=== PATIENT | male | born 1950 | race Caucasian/White ===

== ENCOUNTER 2020-08-02 18:03 | Inpatient (IN) | payer MEDICARE, BC ==
[2020-08-02] MEDS ORDERED: Lactated Ringers 1,000 ML IV ONE (18:37)
[2020-08-02] MEDS ORDERED: Metoclopramide 10 MG/2 ML SDV IVPUSH ONE (18:37)
--- NOTE | 2020-08-02 18:44 | EDM.PDOC ---
<Jon Calle Romana - Last Filed: 08/02/20 22:25> ED HPI GENERAL MEDICAL PROBLEM - General Chief Complaint: Diabetic Complaint Stated Complaint: BLOOD SUGAR +500,FLUCTUATING BP Time Seen by Provider: 08/02/20 18:37 - Related Data Allergies Allergy/AdvReac Type Severity Reaction Status Date / Time No Known Allergies Allergy Verified 08/03/20 00:00 Home Meds: Home Meds atorvaSTATin [Lipitor] 80 mg PO DAILY 04/08/14 [History] Glimepiride 2 mg PO DAILY 08/02/20 [History] Insulin Detemir [Levemir] 22 unit SUBCUT DAILY 08/02/20 [History] Latanoprost 1 drop EYEBOTH DAILY 08/02/20 [History] Levothyroxine [Synthroid] 100 mcg PO ACBREAKFAST 08/02/20 [History] Losartan [Cozaar] 50 mg PO DAILY 08/02/20 [History] Sildenafil [Revatio] 20 mg PO TID PRN 08/02/20 [History] metFORMIN [Glucophage] 850 mg PO DAILY 08/02/20 [History] #1 Interpretation EKG Date: 08/02/20 Time: 19:33 Rhythm: Other (Sinus tachycardia) Rate (Beats/Min): 106 [place]: Normal P-Wave: Present QRS: Normal ST-T: Normal QT: Prolonged (QTc 556 ms) Comparison: No Change (05/13/2014) Course - Re-Assessments/Exams Free Text/Narrative Re-Assessment/Exam: 08/02/20 19:[address] De Los Santos. Portable chest radiograph reviewed. The cardiac silhouette is within normal li mits. No pulmonary vascular congestion. No pleural effusions seen on this AP view. No focal infiltrate, although there is increased haziness to the right two thirds of the lung, most likely due to scarring and possible some atelectasis.. No pneumothorax. A left-sided Port-A-Cath is noted. The right shoulder is not visualized; the left shoulder appears to have degenerative joint disease. Formal read per the Radiologist pending. 08/02/20 20:05 The patient's first liter of IV fluid has finished infusing. I have ordered a second liter of IV fluid to be bolused. 08/02/20 20:17 The patient's CBC is remarkable for slight anemia with an H/H of 13.4/34.7, with the remainder of his CBC being unremarkable. His CMP is remarkable for hyponatremia of 126, which corrects to 132. His bicarbonate is significantly depressed at 12.0, with an anion gap elevated at 13.5. His BUN/Cr are elevated at 42/1.9, with hyperglycemia of 586, and the remainder of his CMP being unremarkable. His magnesium level is slightly depressed at 1.6. His phosphorus level is elevated at 5.2. His uric acid level is within normal limits at 5.8. His lactic acid level is elevated at 2.6. His serum ketones are significantly elevated at 7.05. His lipase level is within normal limits at 88. His TSH is elevated at 6.227. His pro-BNP is modestly elevated at 998. His coags are within normal limits. His CRP is mildly elevated at 1.4. His ABG represents a primary high anion gap metabolic acidosis with secondary respiratory alkalosis and metabolic alkalosis. His swab for the SARS-CoV-2 virus has returned negative. The patient's serum osmolality, ESR, and urinalysis are still pending. Reviewing prior labs, I see that the patient's BUN/Cr were 19/1.4 on 04/10/2014, although his Cr was within normal limits at 1.1 on 06/03/2014. The above confirms that the patient is in DKA. He will need to be admitted to the hospital. I have ordered a repeat lactic acid to be drawn at 00:30. 08/02/20 21:46 The patient's serum osmole has returned elevated at 314. His ESR is elevated at 27. He has not yet provided a urine sample. Case discussed with Dr. Herrera at 21:42. He accepted the patient for admission to the ICU. 08/02/20 21:53 The above plan was discussed with the patient and his family. He is agreeable. 08/02/20 22:04 The patient's blood glucose was 586 at 19:00, down to 499 at 20:45, indicating a drop of 87 over 1 hour 45 minutes = 58 mg/dl/hr = a little over half the rate of decline that we want. I have asked Anastasia MOSS to increase the insulin drip from 4 units/hr to 7 units/hr. Departure - Departure Time of Disposition: 21:46 Disposition: Admitted As Inpatient 66 Condition: Fair Clinical Impression: Hyperglycemia due to type 2 diabetes mellitus, Diabetic ketoacidosis, QT prolongation, Lactic acidosis, Renal insufficiency, Elevated TSH - Discharge Information <David De Los Santos - Last Filed: 08/05/20 13:06> ED HPI GENERAL MEDICAL PROBLEM - General Source of Information: Reports: Patient, Family (spouse) History Limitations: Reports: No Limitations - History of Present Illness INITIAL COMMENTS - FREE TEXT/NARRATIVE: 70-year-old male presents to the ED with a blood sugar reportedly greater than 500. Patient has been a diabetic for about 35 years he believes since 1984. He is on a combination of oral meds for diabetes as well as insulin. 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 He has had a combination of radiation and chemotherapy and the lung lesions have apparently cleared. A new lesion has shown up in his liver about the size of his thumbnail within the last 3 months. Patient had a PET scan within the last week which did not show any lesions in the lungs but did show the lesion in the liver. Patient is still receiving immunotherapy intravenously every 2 weeks through his Port-A-Cath left upper anterior chest by his oncologist. He just had it on Tuesday this last week July 29 for this lesion and it will be watched closely by his oncologist whom is Dr. Sandoval and Dr. Rodriguez in [place]. Patient has only had a boost to drink today. He did not check his blood sugars yesterday. He is extremely thirsty with polyuria and polydipsia. He is lightheaded and dizzy. Blood pressure was quite low this morning as well. It is currently 98/72 which is abnormally low for him as well. Denies cough or sputum production. No diarrhea. Had a small bilious emesis x1 this morning without blood. Patient has lost 21 pounds of weight since June of last year. Patient did take a slightly increased dose of Levemir insulin today increase it from 22 units to 25 units this morning. Onset: Gradual Onset Date: 08/01/20 Duration: Hour(s):, Constant, Getting Worse Location: Reports: Abdomen (Diffuse ache in the epigastrium. Epigastric abdominal discomfort.), Generalized (Neurolysed weakness with nausea. Mild lightheaded and dizzy.) Quality: Reports: Ache Severity: Moderate Improves with: Reports: None Worsens with: Reports: None Context: Denies: Activity, Exercise, Lifting, Sick Contact, Trauma Associated Symptoms: Reports: Cough, Loss of Appetite, Malaise (Normal cough with no sputum production), Nausea/Vomiting, Weakness. Denies: Confusion, Chest Pain, cough w sputum, Diaphoresis, Fever/Chills, Headaches, Rash, Seizure (Nausea throughout most of the day. Small emesis of bilious material once early this morning.), Shortness of Breath, Syncope Treatments PILLOW CLEANER: Reports: Other (see below) (Paralyzed.) Epigastric Pain Score (Numeric/FACES): 7 Past Medical History Respiratory History: Reports: Other (See Below) Other Respiratory History: lung ca in the right lung. He cannot member of his upper or lower. He was treated with radiation and chemotherapy. He had multiple lymphadenopathy in the right perihilar area as well which apparently has resolved on most recent PET scan. Unfortunately a new lesion was discovered in his liver within the last 4 months and it is being kept an eye on. He is still on immunotherapy. PET scan was done within the last 10 days. Endocrine/Metabolic History: Reports: Diabetes, Type II (Diagnosed with diabetes in about 1984. He has been taking oral medications initially and has been on insulin for greater than 25 years.) Oncologic (Cancer) History: Reports: Lung - Past Surgical History Respiratory Surgical History: Reports: Lung Biopsies, Other (See Below) (He asked anoscopy with biopsies.) GI Surgical History: Reports: Appendectomy, Cholecystectomy Social & Family History - Tobacco Use Tobacco Use Status *Q: Never Tobacco User - Recreational Drug Use Recreational Drug Use: No - Living Situation & Occupation Living situation: Reports: Occupation: Retired ED ROS GENERAL - Review of Systems Review Of Systems: See Below Constitutional: Reports: Malaise, Weakness, Fatigue, Decreased Appetite (A 1 pound weight loss over the last year.), Weight Loss. Denies: Fever, Chills HEENT: Reports: Glasses Respiratory: Reports: Cough, Other (Of lung cancer diagnosed 3 years ago involving right lung and right paramediastinal lymphadenopathy.). Denies: Shortness of Breath, Wheezing, Pleuritic Chest Pain, Sputum, Hemoptysis (Occasional nonproductive cough) Cardiovascular: Reports: Blood Pressure Problem, Lightheadedness. Denies: Chest Pain, Claudication (Usually has an elevated blood pressure. Running low today.), Dyspnea on Exertion, Edema, Orthopnea, Palpitations Endocrine: Reports: Fatigue GI/Abdominal: Reports: Abdominal Pain (Gastric abdominal discomfort with no radiation of the pain), Decreased Appetite, Nausea, Vomiting. Denies: Constipation, Diarrhea, Difficulty Swallowing, Distension, Flatus, Hematemesis, Hematochezia, Melena, Mucous in Stool, Stool Incontinence, Other (Small bilious emesis earlier this morning.) : Reports: Frequency, Urgency. Denies: Dysuria Musculoskeletal: Reports: Back Pain, Joint Pain (Knees and hips at times neck at times.) Skin: Reports: No Symptoms Neurological: Reports: Dizziness (Headed and dizzy), Weakness. Denies: Paresthesia ( particularly this morning.), Pre-Existing Deficit, Seizure, Syncope, Tingling, Tremors, Trouble Speaking, Difficulty Walking (Neurolysed weakness), Change in Speech Psychiatric: Reports: No Symptoms Hematologic/Lymphatic: Reports: No Symptoms Immunologic: Reports: No Symptoms ED EXAM GENERAL NO PERIP PULSE - Physical Exam Exam: See Below Exam Limited By: No Limitations General Appearance: Alert, WD/WN, Mild Distress, Other (Strong smell of ketones on his breath. Tongue is very dry and coated. Temperature is 36.4 degrees. Heart rate 118 and sinus on the monitor at the bedside. Respiratory it is 21 to 24/min with O2 sats 100%. BP 116/71 and after that it came down to 98/70. Subsequently has now come back up to 123/81.) Course - Vital Signs Last Recorded V/S: Last Vital Signs Temp 36.3 C 08/03/20 08:00 Pulse 80 08/03/20 08:00 Resp 16 08/03/20 08:00 BP 107/70 08/03/20 08:00 Pulse Ox 96 08/03/20 08:00 - Orders/Labs/Meds Labs: Laboratory Tests 08/02/20 08/02/20 08/02/20 Range/Units 03:04 18:55 19:00 WBC 8.00 (4.23-9.07) K/mm3 RBC 4.43 L (4.63-6.08) M/mm3 Hgb 13.4 L (13.7-17.5) gm/dl Hct 39.7 L (40.1-51.0) % MCV 89.6 D (79.0-92.2) fl MCH 30.2 (25.7-32.2) pg MCHC 33.8 (32.2-35.5) g/dl RDW Std Deviation 40.7 (35.1-43.9) fL Plt Count 230 (163-337) K/mm3 MPV 9.1 L (9.4-12.3) fl Neut % (Auto) 81.0 H (34.0-67.9) % Lymph % (Auto) 10.3 L (21.8-53.1) % [place] % (Auto) 8.3 (5.3-12.2) % Eos % (Auto) 0 L (0.8-7.0) Baso % (Auto) 0.1 (0.1-1.2) % Neut # (Auto) 6.49 H (1.78-5.38) K/mm3 Lymph # (Auto) 0.82 L (1.32-3.57) K/mm3 [place] # (Auto) 0.66 (0.30-0.82) K/mm3 Eos # (Auto) 0.00 L (0.04-0.54) K/mm3 Baso # (Auto) 0.01 (0.01-0.08) K/mm3 ESR (0-15) mm/hr PT (9.7-12.0) SECONDS INR APTT (21.7-31.4) SECONDS Puncture Site Lt radial ABG pH 7.27 L (7.35-7.45) ABG pCO2 22.7 L (35.0-45.0) mmHg ABG pO2 106.0 H (80.0-100.0) mmHg ABG HCO3 10.2 L (22.0-26.0) meq/L ABG O2 Saturation 97.3 H (96.0-97.0) % ABG Base Excess -15.0 L (-2-2.0) Codey Test Positive A-a Gradient 16 mmHg O2 Delivery Device Room air Oxygen Flow Rate 0.0 FiO2 21.00 (21.00-100.00) % Sodium (136-145) mEq/L Potassium (3.5-5.1) mEq/L Chloride (98-107) mEq/L Carbon Dioxide (21-32) mEq/L Anion Gap (5-15) BUN (7-18) mg/dL Creatinine (0.7-1.3) mg/dL Est Cr Clr Drug Dosing mL/min Estimated GFR (MDRD) (>60) mL/min BUN/Creatinine Ratio (14-18) Glucose (80-115) mg/dL Serum Osmolality (280-300) mosm/kg Lactic Acid (0.4-2.0) mmol/L Uric Acid (3.5-7.2) mg/dL Calcium (8.5-10.1) mg/dL Phosphorus (2.6-4.7) mg/dL Magnesium (1.8-2.4) mg/dl Total Bilirubin (0.2-1.0) mg/dL AST (15-37) U/L ALT (16-63) U/L Alkaline Phosphatase (46-116) U/L C-Reactive Protein (<1.0) mg/dL NT-Pro-B Natriuret Pep (0-125) pg/mL Total Protein (6.4-8.2) g/dl Albumin (3.4-5.0) g/dl Globulin gm/dL Albumin/Globulin Ratio (1-2) Lipase (73-393) U/L TSH 3rd Generation (0.358-3.74) uIU/mL Ketones (0.0-0.3) mM Influenza Type A RNA Negative (NEGATIVE) Influenza Type B RNA Negative (NEGATIVE) SARS-CoV-2 RNA (DUSTY) Negative (NEGATIVE) 08/02/20 08/02/20 08/02/20 Range/Units 19:00 19:00 19:00 WBC (4.23-9.07) K/mm3 RBC (4.63-6.08) M/mm3 Hgb (13.7-17.5) gm/dl Hct (40.1-51.0) % MCV (79.0-92.2) fl MCH (25.7-32.2) pg MCHC (32.2-35.5) g/dl RDW Std Deviation (35.1-43.9) fL Plt Count (163-337) K/mm3 MPV (9.4-12.3) fl Neut % (Auto) (34.0-67.9) % Lymph % (Auto) (21.8-53.1) % [place] % (Auto) (5.3-12.2) % Eos % (Auto) (0.8-7.0) Baso % (Auto) (0.1-1.2) % Neut # (Auto) (1.78-5.38) K/mm3 Lymph # (Auto) (1.32-3.57) K/mm3 [place] # (Auto) (0.30-0.82) K/mm3 Eos # (Auto) (0.04-0.54) K/mm3 Baso # (Auto) (0.01-0.08) K/mm3 ESR (0-15) mm/hr PT (9.7-12.0) SECONDS INR APTT (21.7-31.4) SECONDS Puncture Site ABG pH (7.35-7.45) ABG pCO2 (35.0-45.0) mmHg ABG pO2 (80.0-100.0) mmHg ABG HCO3 (22.0-26.0) meq/L ABG O2 Saturation (96.0-97.0) % ABG Base Excess (-2-2.0) Codey Test A-a Gradient mmHg O2 Delivery Device Oxygen Flow Rate FiO2 (21.00-100.00) % Sodium 126 L (136-145) mEq/L Potassium 4.5 (3.5-5.1) mEq/L Chloride 87 L (98-107) mEq/L Carbon Dioxide 12 L D (21-32) mEq/L Anion Gap 31.5 H (5-15) BUN 42 H (7-18) mg/dL Creatinine 1.9 H (0.7-1.3) mg/dL Est Cr Clr Drug Dosing 39.71 mL/min Estimated GFR (MDRD) 35 (>60) mL/min BUN/Creatinine Ratio 22.1 H (14-18) Glucose 586 H (80-115) mg/dL Serum Osmolality 314 H (280-300) mosm/kg Lactic Acid 2.6 H* (0.4-2.0) mmol/L Uric Acid 5.8 (3.5-7.2) mg/dL Calcium 9.3 (8.5-10.1) mg/dL Phosphorus 5.2 H (2.6-4.7) mg/dL Magnesium 1.6 L (1.8-2.4) mg/dl Total Bilirubin 0.6 (0.2-1.0) mg/dL AST 26 (15-37) U/L ALT 44 (16-63) U/L Alkaline Phosphatase 100 (46-116) U/L C-Reactive Protein 1.4 H* (<1.0) mg/dL NT-Pro-B Natriuret Pep (0-125) pg/mL Total Protein 6.9 (6.4-8.2) g/dl Albumin 3.3 L (3.4-5.0) g/dl Globulin 3.6 gm/dL Albumin/Globulin Ratio 0.9 L (1-2) Lipase 88 (73-393) U/L TSH 3rd Generation (0.358-3.74) uIU/mL Ketones 7.05 (0.0-0.3) mM Influenza Type A RNA (NEGATIVE) Influenza Type B RNA (NEGATIVE) SARS-CoV-2 RNA (DUSTY) (NEGATIVE) 08/02/20 08/02/20 08/02/20 Range/Units 19:00 19:00 19:00 WBC (4.23-9.07) K/mm3 RBC (4.63-6.08) M/mm3 Hgb (13.7-17.5) gm/dl Hct (40.1-51.0) % MCV (79.0-92.2) fl MCH (25.7-32.2) pg MCHC (32.2-35.5) g/dl RDW Std Deviation (35.1-43.9) fL Plt Count (163-337) K/mm3 MPV (9.4-12.3) fl Neut % (Auto) (34.0-67.9) % Lymph % (Auto) (21.8-53.1) % [place] % (Auto) (5.3-12.2) % Eos % (Auto) (0.8-7.0) Baso % (Auto) (0.1-1.2) % Neut # (Auto) (1.78-5.38) K/mm3 Lymph # (Auto) (1.32-3.57) K/mm3 [place] # (Auto) (0.30-0.82) K/mm3 Eos # (Auto) (0.04-0.54) K/mm3 Baso # (Auto) (0.01-0.08) K/mm3 ESR 27 H (0-15) mm/hr PT 10.5 (9.7-12.0) SECONDS INR 0.98 APTT 30.9 (21.7-31.4) SECONDS Puncture Site ABG pH (7.35-7.45) ABG pCO2 (35.0-45.0) mmHg ABG pO2 (80.0-100.0) mmHg ABG HCO3 (22.0-26.0) meq/L ABG O2 Saturation (96.0-97.0) % ABG Base Excess (-2-2.0) Codey Test A-a Gradient mmHg O2 Delivery Device Oxygen Flow Rate FiO2 (21.00-100.00) % Sodium (136-145) mEq/L Potassium (3.5-5.1) mEq/L Chloride (98-107) mEq/L Carbon Dioxide (21-32) mEq/L Anion Gap (5-15) BUN (7-18) mg/dL Creatinine (0.7-1.3) mg/dL Est Cr Clr Drug Dosing mL/min Estimated GFR (MDRD) (>60) mL/min BUN/Creatinine Ratio (14-18) Glucose (80-115) mg/dL Serum Osmolality (280-300) mosm/kg Lactic Acid (0.4-2.0) mmol/L Uric Acid (3.5-7.2) mg/dL Calcium (8.5-10.1) mg/dL Phosphorus (2.6-4.7) mg/dL Magnesium (1.8-2.4) mg/dl Total Bilirubin (0.2-1.0) mg/dL AST (15-37) U/L ALT (16-63) U/L Alkaline Phosphatase (46-116) U/L C-Reactive Protein (<1.0) mg/dL NT-Pro-B Natriuret Pep 998 H (0-125) pg/mL Total Protein (6.4-8.2) g/dl Albumin (3.4-5.0) g/dl Globulin gm/dL Albumin/Globulin Ratio (1-2) Lipase (73-393) U/L TSH 3rd Generation (0.358-3.74) uIU/mL Ketones (0.0-0.3) mM Influenza Type A RNA (NEGATIVE) Influenza Type B RNA (NEGATIVE) SARS-CoV-2 RNA (DUSTY) (NEGATIVE) 08/02/20 08/02/20 08/02/20 Range/Units 19:00 19:03 20:45 WBC (4.23-9.07) K/mm3 RBC (4.63-6.08) M/mm3 Hgb (13.7-17.5) gm/dl Hct (40.1-51.0) % MCV (79.0-92.2) fl MCH (25.7-32.2) pg MCHC (32.2-35.5) g/dl RDW Std Deviation (35.1-43.9) fL Plt Count (163-337) K/mm3 MPV (9.4-12.3) fl Neut % (Auto) (34.0-67.9) % Lymph % (Auto) (21.8-53.1) % [place] % (Auto) (5.3-12.2) % Eos % (Auto) (0.8-7.0) Baso % (Auto) (0.1-1.2) % Neut # (Auto) (1.78-5.38) K/mm3 Lymph # (Auto) (1.32-3.57) K/mm3 [place] # (Auto) (0.30-0.82) K/mm3 Eos # (Auto) (0.04-0.54) K/mm3 Baso # (Auto) (0.01-0.08) K/mm3 ESR (0-15) mm/hr PT (9.7-12.0) SECONDS INR APTT (21.7-31.4) SECONDS Puncture Site ABG pH (7.35-7.45) ABG pCO2 (35.0-45.0) mmHg ABG pO2 (80.0-100.0) mmHg ABG HCO3 (22.0-26.0) meq/L ABG O2 Saturation (96.0-97.0) % ABG Base Excess (-2-2.0) Codey Test A-a Gradient mmHg O2 Delivery Device Oxygen Flow Rate FiO2 (21.00-100.00) % Sodium (136-145) mEq/L Potassium (3.5-5.1) mEq/L Chloride (98-107) mEq/L Carbon Dioxide (21-32) mEq/L Anion Gap (5-15) BUN (7-18) mg/dL Creatinine (0.7-1.3) mg/dL Est Cr Clr Drug Dosing mL/min Estimated GFR (MDRD) (>60) mL/min BUN/Creatinine Ratio (14-18) Glucose 499 H (80-115) mg/dL Serum Osmolality (280-300) mosm/kg Lactic Acid (0.4-2.0) mmol/L Uric Acid (3.5-7.2) mg/dL Calcium (8.5-10.1) mg/dL Phosphorus (2.6-4.7) mg/dL Magnesium (1.8-2.4) mg/dl Total Bilirubin (0.2-1.0) mg/dL AST (15-37) U/L ALT (16-63) U/L Alkaline Phosphatase (46-116) U/L C-Reactive Protein (<1.0) mg/dL NT-Pro-B Natriuret Pep (0-125) pg/mL Total Protein (6.4-8.2) g/dl Albumin (3.4-5.0) g/dl Globulin gm/dL Albumin/Globulin Ratio (1-2) Lipase (73-393) U/L TSH 3rd Generation 6.227 H (0.358-3.74) uIU/mL Ketones (0.0-0.3) mM Influenza Type A RNA (NEGATIVE) Influenza Type B RNA (NEGATIVE) SARS-CoV-2 RNA (DUSTY) Negative (NEGATIVE) Meds: Medications Discontinued Medications Generic Name Dose Route Start Last Admin Trade Name Freq PRN Reason Stop Dose Admin Acetaminophen 650 mg 08/02/20 21:44 Tylenol PO Q4H PRN Pain (Mild 1-3)/fever Hydrocodone Bitart/Acetaminophen 1 tab 08/02/20 21:44 [place] 325-5 Mg PO Q4H PRN Pain (moderate 4-6) Albuterol/Ipratropium 3 ml 08/02/20 21:44 Duoneb 3.0-0.5 Mg/3 Ml NEB Q4H PRN Shortness Of Breath/wheezing Heparin Sodium (Porcine) 500 units 08/03/20 11:30 08/03/20 11:24 Heparin Lock Flush 100 Units/Ml FLUSH 08/03/20 11:31 500 units ONETIME ONE Administration Lactated Ringer's 1,000 mls @ 999 mls/hr 08/02/20 18:37 08/02/20 19:01 Ringers, Lactated IV 08/02/20 19:37 999 mls/hr .BOLUS ONE Administration Insulin Human Regular 100 unit 100 mls @ 4 mls/hr 08/02/20 19:15 08/02/20 22:07 / Sodium Chloride IV 6 unit/hr TITRATE REGINALD 6 mls/hr Infusion 4 UNIT/HR Sodium Chloride 1,000 mls @ 999 mls/hr 08/02/20 20:05 08/02/20 20:10 Normal Saline IV 08/02/20 21:05 999 mls/hr ONETIME ONE Administration Promethazine HCl 12.5 mg/ 50.5 mls @ 100 mls/hr 08/02/20 21:44 Sodium Chloride IV Q6H PRN Nausea/Vomiting Magnesium Sulfate 4 gm/ Premix 50 mls @ 12.5 mls/hr 08/02/20 21:52 08/02/20 22:41 IV 08/03/20 01:51 12.5 mls/hr ONETIME ONE Administration Sodium Chloride 1,000 mls @ 125 mls/hr 08/02/20 22:00 08/02/20 22:43 Normal Saline IV 08/03/20 05:59 125 mls/hr ASDIRECTED REGINALD Administration Insulin Human Regular 100 unit 100 mls @ 4 mls/hr 08/02/20 23:24 08/03/20 06:35 / Sodium Chloride IV 4 unit/hr TITRATE REGINALD 4 mls/hr Titration Protocol 4 UNIT/HR Potassium Chloride 10 meq/ 100 mls @ 100 mls/hr 08/03/20 03:45 08/03/20 03:45 Premix IV 08/03/20 04:44 100 mls/hr ASDIRECTED ONE Administration Dextrose/Sodium Chloride 1,000 mls @ 150 mls/hr 08/03/20 04:00 08/03/20 04:13 Dextrose 5%-Normal Saline IV 150 mls/hr ASDIRECTED REGINALD Administration Potassium Chloride 10 meq/ 100 mls @ 100 mls/hr 08/03/20 10:00 08/03/20 11:00 Premix IV 08/03/20 12:59 Not Given Q1H REGINALD Insulin Glargine 25 unit 08/03/20 00:58 08/03/20 01:07 Lantus SUBCUT 08/03/20 00:59 25 unit DAILY STA Administration Insulin Glargine 22 unit 08/03/20 09:15 08/03/20 09:23 Lantus SUBCUT 22 units DAILY REGINALD Administration Latanoprost 0 ml 08/03/20 09:00 08/03/20 09:26 Xalatan 0.005% Ophth Soln EYEBOTH 1 drop DAILY REGINALD Administration Metoclopramide HCl 7.5 mg 08/02/20 18:37 08/02/20 19:00 Reglan IVPUSH 08/02/20 18:38 7.5 mg ONETIME ONE Administration Ondansetron HCl 4 mg 08/02/20 21:44 Zofran IV Q6H PRN Nausea/Vomiting Polyethylene Glycol 17 gm 08/02/20 21:44 Miralax PO DAILY PRN Constipation Rosuvastatin Calcium 20 mg 08/03/20 21:00 Crestor PO DAILY@2100 REGINALD Senna/Docusate Sodium 1 tab 08/02/20 21:44 Senna Plus PO BID PRN Constipation Sodium Phosphate 250 mg 08/03/20 10:00 08/03/20 10:00 Neutra-Phos PO 08/03/20 10:01 250 mg ONETIME ONE Administration Zolpidem Tartrate 5 mg 08/02/20 21:44 08/02/20 22:50 Ambien PO 5 mg BEDTIME PRN Administration Sleep - Radiology Interpretation Free Text/Narrative:: 70-year-old male presents to the ED due to an elevated blood sugar of greater than 500 associated with generalized weakness epigastric abdominal pain and loss of appetite. Patient is a known diabetic type II since 1984. He was initially treated with oral medications and then changed to insulin in about 1995 or . Patient was diagnosed with right-sided lung cancer about 3 years ago and has undergone radiation and chemotherapy. He had significant lymphadenopathy in the right perihilar area which apparently has diminished or pretty well absent on recent PET scan. Unfortunately a lesion has been discovered in the right lobe of his liver about the size of his thumbnail for which she is continuing immunotherapy for. Patient did take a slightly increased dose of Levemir insulin this morning from 22 to 25 units subcu. He did not check his blood sugars yesterday and therefore is not exactly sure how long his blood sugars have gone out of control. He denies any fever or chills and he has no outward signs of any obvious infection. Patient has strong smell of ketones on his breath. He admits to severe polyuria and polydipsia. Plan IV Ringer's lactate open. Will await his bedside blood sugar before starting an insulin drip. Labs have been ordered including ABGs and a chest x-ray. - Re-Assessments/Exams Free Text/Narrative Re-Assessment/Exam: 08/02/20 19:07 care will be transferred to Dr. Calle and is it is change of shift. The patient is likely going to require admission to hospital likely the ICU due to diabetic ketoacidosis. His investigations have just begun. Blood sugar in the department is greater than 400. His reports that blood sugar was 533 at home before they came up to [place]. I will therefore start him on a regular insulin infusion at 4 units an hour. ABGs reveal a pH of 7.27. PCO2 is 22.7 PO2 is 106.0. O2 sats 97.3% on room air. Sepsis Event Note (ED) - Evaluation Sepsis Screening Result: Possible Sepsis Risk
[2020-08-02] MEDS ORDERED: Sodium Chloride 0.9% 1,000 ML IV ONE (20:05)
[2020-08-02] MEDS ORDERED: Albuterol/Ipratropium 3.0-0.5 MG/3 ML Neb Soln NEB PRN (21:44)
[2020-08-02] MEDS ORDERED: Polyethylene Glycol 3350 Powder 17 GM Packet PO PRN (21:44)
[2020-08-02] MEDS ORDERED: Acetaminophen 325 MG Tab PO PRN (21:44)
[2020-08-02] MEDS ORDERED: Zolpidem 5 MG Tab PO PRN (21:44)
[2020-08-02] MEDS ORDERED: Promethazine 12.5 MG in Sodium Chloride 0.9% 50 ML IV PRN (21:44)
[2020-08-02] MEDS ORDERED: Ondansetron 4 MG/2 ML SDV IV PRN (21:44)
[2020-08-02] MEDS ORDERED: Acetaminophen/HYDROcodone 325-5 MG Tab PO PRN (21:44)
--- NOTE | 2020-08-02 21:44 | PCM.HP.2 ---
H&P History of Present Illness - General Date of Service: 08/02/20 Admit Problem/Dx: DKA Source of Information: Patient, Family, Old Records, Provider, RN Notes Reviewed History Limitations: Reports: No Limitations - History of Present Illness Initial Comments - Free Text/Narative: This is a 70 yo elderly white female with past medical hx/o HTN, HLD, DM2, ED, Hypothyroidism, and Lung Cancer S/p Chemo-radiation therapy who presented to ED with complaints of generalized weakness associated abdominal pain, nausea, vomiting as well as polyuria/polydipsia and was diagnosed with DKA. His initial blood level upon arrival in ED was > 500. He denies recent URI and/or signs or systemic infection. No report of dysuria or hematuria. He has had chemo-radiation treatment for his lung cancer. He states that he went up a bit on his Levemir to 25 units form 22. He does not know how long his sugar has been elevated as he did not check it yesterday. His initial work up shows a CBC remarkable for Hgb of 13.4, Hct of 39.7, and Neutrophils of 81%. His ESR is elevated at 27. His coagulation studies are wnl. His chemistry is significant for Na of 126, Cl of 87, Co2 of 12, AG of 31.5, BUN of 42, Cr of 1.9, BS of 586, Serum Osm of 314, LA of 2.6, Phos of 5.2, Mg of 1.6, CRP of 1.4, ProBNP of 998, and Albumin of 3.3. His serum ketones level is 7.05. His Covid-19 test is negative and his UA is negative for UTI. His chest x- ray shows no acute abnormal findings. Patient received initial treatment in ED before coming in to the unit for further management of DKA. Epigastric Pain Score (Numeric/FACES): 7 - Related Data Allergies/Adverse Reactions: Allergies Allergy/AdvReac Type Severity Reaction Status Date / Time No Known Allergies Allergy Verified 08/03/20 00:00 Home Medications: Home Meds atorvaSTATin [Lipitor] 80 mg PO DAILY 04/08/14 [History] Glimepiride 2 mg PO DAILY 08/02/20 [History] Insulin Detemir [Levemir] 22 unit SUBCUT DAILY 08/02/20 [History] Latanoprost 1 drop EYEBOTH DAILY 08/02/20 [History] Levothyroxine [Synthroid] 100 mcg PO ACBREAKFAST 08/02/20 [History] Losartan [Cozaar] 50 mg PO DAILY 08/02/20 [History] Sildenafil [Revatio] 20 mg PO TID PRN 08/02/20 [History] metFORMIN [Glucophage] 850 mg PO DAILY 08/02/20 [History] Past Medical History Respiratory History: Reports: Other (See Below) Other Respiratory History: lung ca in the right lung. He cannot member of his upper or lower. He was treated with radiation and chemotherapy. He had multiple lymphadenopathy in the right perihilar area as well which apparently has resolved on most recent PET scan. Unfortunately a new lesion was discovered in his liver within the last 4 months and it is being kept an eye on. He is still on immunotherapy. PET scan was done within the last 10 days. Endocrine/Metabolic History: Reports: Diabetes, Type II (Diagnosed with diabetes in about 1984. He has been taking oral medications initially and has been on insulin for greater than 25 years.) Oncologic (Cancer) History: Reports: Lung - Past Surgical History Respiratory Surgical History: Reports: Lung Biopsies, Other (See Below) (He asked anoscopy with biopsies.) GI Surgical History: Reports: Appendectomy, Cholecystectomy Social & Family History - Tobacco Use Tobacco Use Status *Q: Never Tobacco User - Recreational Drug Use Recreational Drug Use: No - Living Situation & Occupation Living situation: Reports: Occupation: Retired H&P Review of Systems - Review of Systems: Review Of Systems: See Below General: Reports: Weakness, Fatigue. Denies: Fever, Chills HEENT: Denies: Contact Lenses Pulmonary: Denies: Shortness of Breath, Cough Cardiovascular: Reports: Lightheadedness. Denies: Chest Pain, Syncope Gastrointestinal: Reports: Abdominal Pain, Nausea, Vomiting Genitourinary: Reports: Frequency, Other (polyuria) Musculoskeletal: Denies: Joint Pain Skin: Denies: Bruising, Pruritis, Rash Psychiatric: Denies: Depression, Anxiety Neurological: Reports: Dizziness, Weakness. Denies: Difficulty Walking, Gait Disturbance Hematologic/Lymphatic: Reports: No Symptoms Immunologic: Reports: No Symptoms Exam - Exam Exam: See Below - Vital Signs Vital Signs: Last Vital Signs Temp 36.4 C 08/02/20 18:23 Pulse 118 H 08/02/20 18:23 Resp 21 H 08/02/20 18:23 BP 116/71 08/02/20 18:23 Pulse Ox 100 08/02/20 18:23 Weight: 86.183 kg - Exam General: Alert, Oriented, Cooperative HEENT: Conjunctiva Clear, EACs Clear, EOMI, Hearing Intact, Mucosa Moist & [place], Nares Patent, Normal Nasal Septum, Posterior Pharynx Clear, Pupils Equal, Pupils Reactive, TMs Clear Neck: Supple, Trachea Midline, Carotid Bruit Lungs: Clear to Auscultation, Other (port-a-cath on left anterior thorax) Cardiovascular: Regular Rate, Regular Rhythm GI/Abdominal Exam: Normal Bowel Sounds, Soft, Non-Tender, No Organomegaly, No Distention, No Abnormal Bruit, No Mass (Male) Exam: Deferred Rectal (Males) Exam: Deferred Back Exam: Normal Inspection, Decreased Range of Motion Extremities: Normal Inspection, Normal Range of Motion, Non-Tender, No Pedal Edema, Normal Capillary Refill Peripheral Pulses: 2+: Dorsalis Pedis (L), Dorsalis Pedis (R) Skin: Warm, Dry, Intact Neuro Extensive - Mental Status: Oriented x3, Normal Cognition, Memory Intact Neuro Extensive - Motor, Sensory, Reflexes: CN II-XII Intact, Normal Gait Psychiatric: Alert, Normal Affect, Normal Mood - Patient Data Lab Results Last 24 hrs: Laboratory Results - last 24 hr 08/02/20 08/02/20 08/02/20 Range/Units 18:55 19:00 19:00 WBC 8.00 (4.23-9.07) K/mm3 RBC 4.43 L (4.63-6.08) M/mm3 Hgb 13.4 L (13.7-17.5) gm/dl Hct 39.7 L (40.1-51.0) % MCV 89.6 D (79.0-92.2) fl MCH 30.2 (25.7-32.2) pg MCHC 33.8 (32.2-35.5) g/dl RDW Std Deviation 40.7 (35.1-43.9) fL Plt Count 230 (163-337) K/mm3 MPV 9.1 L (9.4-12.3) fl Neut % (Auto) 81.0 H (34.0-67.9) % Lymph % (Auto) 10.3 L (21.8-53.1) % [place] % (Auto) 8.3 (5.3-12.2) % Eos % (Auto) 0 L (0.8-7.0) Baso % (Auto) 0.1 (0.1-1.2) % Neut # (Auto) 6.49 H (1.78-5.38) K/mm3 Lymph # (Auto) 0.82 L (1.32-3.57) K/mm3 [place] # (Auto) 0.66 (0.30-0.82) K/mm3 Eos # (Auto) 0.00 L (0.04-0.54) K/mm3 Baso # (Auto) 0.01 (0.01-0.08) K/mm3 ESR (0-15) mm/hr PT (9.7-12.0) SECONDS INR APTT (21.7-31.4) SECONDS Puncture Site Lt radial ABG pH 7.27 L (7.35-7.45) ABG pCO2 22.7 L (35.0-45.0) mmHg ABG pO2 106.0 H (80.0-100.0) mmHg ABG HCO3 10.2 L (22.0-26.0) meq/L ABG O2 Saturation 97.3 H (96.0-97.0) % ABG Base Excess -15.0 L (-2-2.0) Codey Test Positive A-a Gradient 16 mmHg O2 Delivery Device Room air Oxygen Flow Rate 0.0 FiO2 21.00 (21.00-100.00) % Sodium 126 L (136-145) mEq/L Potassium 4.5 (3.5-5.1) mEq/L Chloride 87 L (98-107) mEq/L Carbon Dioxide 12 L D (21-32) mEq/L Anion Gap 31.5 H (5-15) BUN 42 H (7-18) mg/dL Creatinine 1.9 H (0.7-1.3) mg/dL Est Cr Clr Drug Dosing 39.71 mL/min Estimated GFR (MDRD) 35 (>60) mL/min BUN/Creatinine Ratio 22.1 H (14-18) Glucose 586 H (80-115) mg/dL Serum Osmolality 314 H (280-300) mosm/kg Lactic Acid (0.4-2.0) mmol/L Uric Acid 5.8 (3.5-7.2) mg/dL Calcium 9.3 (8.5-10.1) mg/dL Phosphorus 5.2 H (2.6-4.7) mg/dL Magnesium 1.6 L (1.8-2.4) mg/dl Total Bilirubin 0.6 (0.2-1.0) mg/dL AST 26 (15-37) U/L ALT 44 (16-63) U/L Alkaline Phosphatase 100 (46-116) U/L C-Reactive Protein 1.4 H* (<1.0) mg/dL NT-Pro-B Natriuret Pep (0-125) pg/mL Total Protein 6.9 (6.4-8.2) g/dl Albumin 3.3 L (3.4-5.0) g/dl Globulin 3.6 gm/dL Albumin/Globulin Ratio 0.9 L (1-2) Lipase 88 (73-393) U/L TSH 3rd Generation (0.358-3.74) uIU/mL Ketones (0.0-0.3) mM SARS-CoV-2 RNA (DUSTY) (NEGATIVE) 08/02/20 08/02/20 08/02/20 Range/Units 19:00 19:00 19:00 WBC (4.23-9.07) K/mm3 RBC (4.63-6.08) M/mm3 Hgb (13.7-17.5) gm/dl Hct (40.1-51.0) % MCV (79.0-92.2) fl MCH (25.7-32.2) pg MCHC (32.2-35.5) g/dl RDW Std Deviation (35.1-43.9) fL Plt Count (163-337) K/mm3 MPV (9.4-12.3) fl Neut % (Auto) (34.0-67.9) % Lymph % (Auto) (21.8-53.1) % [place] % (Auto) (5.3-12.2) % Eos % (Auto) (0.8-7.0) Baso % (Auto) (0.1-1.2) % Neut # (Auto) (1.78-5.38) K/mm3 Lymph # (Auto) (1.32-3.57) K/mm3 [place] # (Auto) (0.30-0.82) K/mm3 Eos # (Auto) (0.04-0.54) K/mm3 Baso # (Auto) (0.01-0.08) K/mm3 ESR (0-15) mm/hr PT 10.5 (9.7-12.0) SECONDS INR 0.98 APTT 30.9 (21.7-31.4) SECONDS Puncture Site ABG pH (7.35-7.45) ABG pCO2 (35.0-45.0) mmHg ABG pO2 (80.0-100.0) mmHg ABG HCO3 (22.0-26.0) meq/L ABG O2 Saturation (96.0-97.0) % ABG Base Excess (-2-2.0) Codey Test A-a Gradient mmHg O2 Delivery Device Oxygen Flow Rate FiO2 (21.00-100.00) % Sodium (136-145) mEq/L Potassium (3.5-5.1) mEq/L Chloride (98-107) mEq/L Carbon Dioxide (21-32) mEq/L Anion Gap (5-15) BUN (7-18) mg/dL Creatinine (0.7-1.3) mg/dL Est Cr Clr Drug Dosing mL/min Estimated GFR (MDRD) (>60) mL/min BUN/Creatinine Ratio (14-18) Glucose (80-115) mg/dL Serum Osmolality (280-300) mosm/kg Lactic Acid 2.6 H* (0.4-2.0) mmol/L Uric Acid (3.5-7.2) mg/dL Calcium (8.5-10.1) mg/dL Phosphorus (2.6-4.7) mg/dL Magnesium (1.8-2.4) mg/dl Total Bilirubin (0.2-1.0) mg/dL AST (15-37) U/L ALT (16-63) U/L Alkaline Phosphatase (46-116) U/L C-Reactive Protein (<1.0) mg/dL NT-Pro-B Natriuret Pep (0-125) pg/mL Total Protein (6.4-8.2) g/dl Albumin (3.4-5.0) g/dl Globulin gm/dL Albumin/Globulin Ratio (1-2) Lipase (73-393) U/L TSH 3rd Generation (0.358-3.74) uIU/mL Ketones 7.05 (0.0-0.3) mM SARS-CoV-2 RNA (DUSTY) (NEGATIVE) 08/02/20 08/02/20 08/02/20 Range/Units 19:00 19:00 19:00 WBC (4.23-9.07) K/mm3 RBC (4.63-6.08) M/mm3 Hgb (13.7-17.5) gm/dl Hct (40.1-51.0) % MCV (79.0-92.2) fl MCH (25.7-32.2) pg MCHC (32.2-35.5) g/dl RDW Std Deviation (35.1-43.9) fL Plt Count (163-337) K/mm3 MPV (9.4-12.3) fl Neut % (Auto) (34.0-67.9) % Lymph % (Auto) (21.8-53.1) % [place] % (Auto) (5.3-12.2) % Eos % (Auto) (0.8-7.0) Baso % (Auto) (0.1-1.2) % Neut # (Auto) (1.78-5.38) K/mm3 Lymph # (Auto) (1.32-3.57) K/mm3 [place] # (Auto) (0.30-0.82) K/mm3 Eos # (Auto) (0.04-0.54) K/mm3 Baso # (Auto) (0.01-0.08) K/mm3 ESR 27 H (0-15) mm/hr PT (9.7-12.0) SECONDS INR APTT (21.7-31.4) SECONDS Puncture Site ABG pH (7.35-7.45) ABG pCO2 (35.0-45.0) mmHg ABG pO2 (80.0-100.0) mmHg ABG HCO3 (22.0-26.0) meq/L ABG O2 Saturation (96.0-97.0) % ABG Base Excess (-2-2.0) Codey Test A-a Gradient mmHg O2 Delivery Device Oxygen Flow Rate FiO2 (21.00-100.00) % Sodium (136-145) mEq/L Potassium (3.5-5.1) mEq/L Chloride (98-107) mEq/L Carbon Dioxide (21-32) mEq/L Anion Gap (5-15) BUN (7-18) mg/dL Creatinine (0.7-1.3) mg/dL Est Cr Clr Drug Dosing mL/min Estimated GFR (MDRD) (>60) mL/min BUN/Creatinine Ratio (14-18) Glucose (80-115) mg/dL Serum Osmolality (280-300) mosm/kg Lactic Acid (0.4-2.0) mmol/L Uric Acid (3.5-7.2) mg/dL Calcium (8.5-10.1) mg/dL Phosphorus (2.6-4.7) mg/dL Magnesium (1.8-2.4) mg/dl Total Bilirubin (0.2-1.0) mg/dL AST (15-37) U/L ALT (16-63) U/L Alkaline Phosphatase (46-116) U/L C-Reactive Protein (<1.0) mg/dL NT-Pro-B Natriuret Pep 998 H (0-125) pg/mL Total Protein (6.4-8.2) g/dl Albumin (3.4-5.0) g/dl Globulin gm/dL Albumin/Globulin Ratio (1-2) Lipase (73-393) U/L TSH 3rd Generation 6.227 H (0.358-3.74) uIU/mL Ketones (0.0-0.3) mM SARS-CoV-2 RNA (DUSTY) (NEGATIVE) 08/02/20 08/02/20 Range/Units 19:03 20:45 WBC (4.23-9.07) K/mm3 RBC (4.63-6.08) M/mm3 Hgb (13.7-17.5) gm/dl Hct (40.1-51.0) % MCV (79.0-92.2) fl MCH (25.7-32.2) pg MCHC (32.2-35.5) g/dl RDW Std Deviation (35.1-43.9) fL Plt Count (163-337) K/mm3 MPV (9.4-12.3) fl Neut % (Auto) (34.0-67.9) % Lymph % (Auto) (21.8-53.1) % [place] % (Auto) (5.3-12.2) % Eos % (Auto) (0.8-7.0) Baso % (Auto) (0.1-1.2) % Neut # (Auto) (1.78-5.38) K/mm3 Lymph # (Auto) (1.32-3.57) K/mm3 [place] # (Auto) (0.30-0.82) K/mm3 Eos # (Auto) (0.04-0.54) K/mm3 Baso # (Auto) (0.01-0.08) K/mm3 ESR (0-15) mm/hr PT (9.7-12.0) SECONDS INR APTT (21.7-31.4) SECONDS Puncture Site ABG pH (7.35-7.45) ABG pCO2 (35.0-45.0) mmHg ABG pO2 (80.0-100.0) mmHg ABG HCO3 (22.0-26.0) meq/L ABG O2 Saturation (96.0-97.0) % ABG Base Excess (-2-2.0) Codey Test A-a Gradient mmHg O2 Delivery Device Oxygen Flow Rate FiO2 (21.00-100.00) % Sodium (136-145) mEq/L Potassium (3.5-5.1) mEq/L Chloride (98-107) mEq/L Carbon Dioxide (21-32) mEq/L Anion Gap (5-15) BUN (7-18) mg/dL Creatinine (0.7-1.3) mg/dL Est Cr Clr Drug Dosing mL/min Estimated GFR (MDRD) (>60) mL/min BUN/Creatinine Ratio (14-18) Glucose 499 H (80-115) mg/dL Serum Osmolality (280-300) mosm/kg Lactic Acid (0.4-2.0) mmol/L Uric Acid (3.5-7.2) mg/dL Calcium (8.5-10.1) mg/dL Phosphorus (2.6-4.7) mg/dL Magnesium (1.8-2.4) mg/dl Total Bilirubin (0.2-1.0) mg/dL AST (15-37) U/L ALT (16-63) U/L Alkaline Phosphatase (46-116) U/L C-Reactive Protein (<1.0) mg/dL NT-Pro-B Natriuret Pep (0-125) pg/mL Total Protein (6.4-8.2) g/dl Albumin (3.4-5.0) g/dl Globulin gm/dL Albumin/Globulin Ratio (1-2) Lipase (73-393) U/L TSH 3rd Generation (0.358-3.74) uIU/mL Ketones (0.0-0.3) mM SARS-CoV-2 RNA (DUSTY) Negative (NEGATIVE) Result Diagrams: 08/03/20 05:08 08/03/20 05:08 Sepsis Event Note - Evaluation Sepsis Screening Result: No Definite Risk - Focused Exam Vital Signs: Vital Signs Temp Pulse Resp BP Pulse Ox 08/02/20 18:23 36.4 C 118 H 21 H 116/71 100 Problem List Initiated/Reviewed/Updated: Yes Orders Last 24hrs: Active Orders 24 hr Category Date Time Status Blood Glucose Check, Bedside [RC] ONETIME Care 08/02/20 18:41 Active EKG Documentation Completion [RC] STAT Care 08/02/20 18:40 Active Chest 1V Frontal [CR] Stat Exams 08/02/20 18:39 Taken CULTURE BLOOD [BC] Stat Lab 08/02/20 19:00 Received CULTURE BLOOD [BC] Stat Lab 08/02/20 19:10 Received GLUCOSE RANDOM [CHEM] Stat Lab 08/02/20 21:00 Ordered LACTIC ACID [CHEM] Timed Lab 08/03/20 00:30 Ordered URINALYSIS W/MICROSCOPIC [UA W/MICROSCOPIC] [URIN] Stat Lab 08/02/20 19:00 Ordered Insulin Regular, Human [HumuLIN R] 100 unit Med 08/02/20 19:15 Active Sodium Chloride 0.9% [Normal Saline] 99 ml IV TITRATE Blood Culture x2 Reflex Set [OM.PC] Stat Oth 08/02/20 18:41 Ordered Medication Orders Insulin Human Regular 100 unit (/ Sodium Chloride) 100 mls @ 4 mls/hr IV TITRATE [facility] Last Admin: 08/02/20 19:32 Dose: 4 unit/hr, 4 mls/hr Documented by: MAJOR Cosigned by: ANDRZEJ Assessment/Plan Comment:: This is a 70 yo elderly white female with past medical hx/o HTN, HLD, DM2, ED, Hypothyroidism, and Lung Cancer S/p Chemo-radiation therapy who presented to ED with complaints of generalized weakness associated abdominal pain, nausea, vomiting as well as polyuria/polydipsia and was diagnosed with DKA. Assessment: Acute: Diabetic Ketoacidosis with Serum ketones of 7.05 Normocytic Normochromic Anemia with Hgb of 13.4 Acute kidney injury 2/2 Intravascular volume depletion Moderate dehydration 2/2 Volume depletion Abdominal Pain with Nausea and Vomiting 2/2 DKA Pseudohyponatremia due to DKA, Na of 126 Hypochloremia with Cl of 87 Hypomagnesemia with Mg of 1.6 Increased AG Metabolic Acidosis with CO2 of 12, now 18 Serum Hyperosmolality with serum Osm of 314 Lactic Acidosis with LA of 2.6, now 1.3 Elevates ESR of 27 Elevated Phos of 5.2 Elevated CRP of 1.4 Elevated ProBNP of 998 Elevated Alk Phos of 132 Hypoalbuminemia with Albumin of 3.3 Chronic: HTN, HLD, DM2, ED, Hypothyroidism, and Lung Cancer S/p Chemo-radiation therapy Plan: Admit to ICU. DKA protocol. Aggressive volume resuscitation. Hold off on bicarb infusion. Serial BMP Q4H. NPO except ice chips and sips of water. PRN anti-emetic agents. Goal of treatment is resolve AG. ADA once medically stable. DVT/GI prophylaxis. Possible discharge in AM. - Mortality Measure Prognosis:: Good
[2020-08-02] MEDS ORDERED: Magnesium Sulfate/Water 4 GM in Premix Bag 1 BAG IV ONE (21:52)
[2020-08-02] MEDS ORDERED: Sodium Chloride 0.9% 1,000 ML IV SCH (22:00)
[2020-08-03] MEDS ORDERED: Insulin Glarg,Human.Rec.Analog 100 Unit/ML SUBCUT STA (00:58)
[2020-08-03 03:13] LABS: CORONAVIRUS COVID-19 NAA NEGATIVE (NEGATIVE)
[2020-08-03] MEDS ORDERED: Potassium Chloride 10 MEQ in Premix Bag 1 BAG IV ONE (03:45)
[2020-08-03] MEDS ORDERED: Dextrose 5%-0.9% NaCl 1,000 ML IV SCH (04:00)
[2020-08-03 08:15] VITALS: BP 107/70; PULSE 80
[2020-08-03] MEDS ORDERED: Latanoprost 0.005% Ophth Soln 2.5 ML Bottle EYEBOTH SCH (09:00)
[2020-08-03] MEDS ORDERED: Insulin Glarg,Human.Rec.Analog 100 Unit/ML SUBCUT SCH (09:15)
--- NOTE | 2020-08-03 09:31 | PCM.SN.2 ---
- Free Text/Narrative Note: DKA essentially resolved. He is just had his breakfast w/o issues and now off insulin gtt.
[2020-08-03] MEDS ORDERED: Phosphorus #1 250 MG Tab PO ONE (10:00)
[2020-08-03] MEDS: Potassium Chloride 10 MEQ in Premix Bag 1 BAG IV SCH ×2 (10:19→11:00)
--- NOTE | 2020-08-03 11:01 | PCM.DCSUM1 ---
Discharge Summary - Hospital Course Brief History: This is a 70 yo elderly white female with past medical hx/o HTN, HLD, DM2, ED, Hypothyroidism, and Lung Cancer S/p Chemo-radiation therapy. who presented to ED with complaints of generalized weakness associated abdominal pain, nausea, vomiting as well as polyuria/polydipsia and was diagnosed with DKA. Modified [place] Scale: No Symptoms at All Modified Mari Scale Score: 0 - Discharge Data Discharge Date: 08/03/20 Discharge Disposition: Home, Self-Care 01 Condition: Good - Referral to Home Health Primary Care Physician: Rob Webb MD - Patient Summary/Data Operative Procedure(s) Performed: None Complications: None Consults: Consultations 08/02/20 21:44 Consult to Case Management/Administrative Clerk [CONS] Routine Consult to Diabetic Nurse Specialist [CONS] Routine Labs Pending at D/C: None Recommended Follow-up Testing/Procedures: None Planned Operative Procedure(s) after DC: None Hospital Course: Patient was primarily admitted for DKA. His work up revealed no clear source of his DKA. His basic infectious work was negative. However he improved overnight with DKA treatment. His hospital course was uncomplicated. Once medically cleared, he was immediately sent back home. He was advised to follow up with his PCP in 1 week if needed but not indicated. - Patient Instructions Diet: Usual Diet as Tolerated, Diabetic Diet Activity: As Tolerated Driving: Do Not Drive Showering/Bathing: May Shower Notify Provider of: Fever, Increased Pain, Nausea and/or Vomiting - Discharge Plan *PRESCRIPTION DRUG MONITORING PROGRAM REVIEWED*: Not Applicable *COPY OF PRESCRIPTION DRUG MONITORING REPORT IN PATIENT CANDY: Not Applicable Home Medications: Home Meds atorvaSTATin [Lipitor] 80 mg PO DAILY 04/08/14 [History] Glimepiride 2 mg PO DAILY 08/02/20 [History] Insulin Detemir [Levemir] 22 unit SUBCUT DAILY 08/02/20 [History] Latanoprost 1 drop EYEBOTH DAILY 08/02/20 [History] Levothyroxine [Synthroid] 100 mcg PO ACBREAKFAST 08/02/20 [History] Losartan [Cozaar] 50 mg PO DAILY 08/02/20 [History] Sildenafil [Revatio] 20 mg PO TID PRN 08/02/20 [History] metFORMIN [Glucophage] 850 mg PO DAILY 08/02/20 [History] Oxygen Therapy Mode: Room Air Patient Handouts: Diabetic Ketoacidosis, Preventing Diabetic Ketoacidosis Referrals: Rob Webb MD [Primary Care Provider] - - Discharge Summary/Plan Comment DC Time >30 min.: No Discharge Summary/Plan Comment: Discharge to Home - General Info Date of Service: 08/03/20 Admission Dx/Problem (Free Text: DKA Subjective Update: No overnight or acute issues. Functional Status: Reports: Pain Controlled, Tolerating Diet, Ambulating, Urinating. Denies: New Symptoms - Review of Systems General: Denies: Fever, Weakness, Fatigue, Malaise, Chills HEENT: Reports: No Symptoms Pulmonary: Denies: Shortness of Breath Cardiovascular: Denies: Chest Pain Gastrointestinal: Denies: Abdominal Pain, Nausea, Vomiting Genitourinary: Denies: Dysuria, Frequency Musculoskeletal: Denies: Neck Pain Skin: Denies: Cyanosis, Pruritis, Rash Neurological: Denies: Confusion, Trouble Speaking, Weakness, Gait Disturbance Psychiatric: Denies: Depression, Mood Lability, Anxiety - Patient Data Vitals - Most Recent: Last Vital Signs Temp 36.3 C 08/03/20 08:00 Pulse 80 08/03/20 08:00 Resp 16 08/03/20 08:00 BP 107/70 08/03/20 08:00 Pulse Ox 96 08/03/20 08:00 Weight - Most Recent: 88.133 kg I&O - Last 24 hours: Intake & Output 08/02/20 08/03/20 08/03/20 22:59 06:59 14:59 Intake Total 660 Output Total 500 Balance 160 Lab Results - Last 24 hrs: Laboratory Results - last 24 hr 08/02/20 08/02/20 08/02/20 Range/Units 03:04 18:55 19:00 WBC 8.00 (4.23-9.07) K/mm3 RBC 4.43 L (4.63-6.08) M/mm3 Hgb 13.4 L (13.7-17.5) gm/dl Hct 39.7 L (40.1-51.0) % MCV 89.6 D (79.0-92.2) fl MCH 30.2 (25.7-32.2) pg MCHC 33.8 (32.2-35.5) g/dl RDW Std Deviation 40.7 (35.1-43.9) fL Plt Count 230 (163-337) K/mm3 MPV 9.1 L (9.4-12.3) fl Neut % (Auto) 81.0 H (34.0-67.9) % Lymph % (Auto) 10.3 L (21.8-53.1) % Starr % (Auto) 8.3 (5.3-12.2) % Eos % (Auto) 0 L (0.8-7.0) Baso % (Auto) 0.1 (0.1-1.2) % Neut # (Auto) 6.49 H (1.78-5.38) K/mm3 Lymph # (Auto) 0.82 L (1.32-3.57) K/mm3 Starr # (Auto) 0.66 (0.30-0.82) K/mm3 Eos # (Auto) 0.00 L (0.04-0.54) K/mm3 Baso # (Auto) 0.01 (0.01-0.08) K/mm3 ESR (0-15) mm/hr PT (9.7-12.0) SECONDS INR APTT (21.7-31.4) SECONDS Puncture Site Lt radial ABG pH 7.27 L (7.35-7.45) ABG pCO2 22.7 L (35.0-45.0) mmHg ABG pO2 106.0 H (80.0-100.0) mmHg ABG HCO3 10.2 L (22.0-26.0) meq/L ABG O2 Saturation 97.3 H (96.0-97.0) % ABG Base Excess -15.0 L (-2-2.0) Codey Test Positive A-a Gradient 16 mmHg O2 Delivery Device Room air Oxygen Flow Rate 0.0 FiO2 21.00 (21.00-100.00) % Sodium (136-145) mEq/L Potassium (3.5-5.1) mEq/L Chloride (98-107) mEq/L Carbon Dioxide (21-32) mEq/L Anion Gap (5-15) BUN (7-18) mg/dL Creatinine (0.7-1.3) mg/dL Est Cr Clr Drug Dosing mL/min Estimated GFR (MDRD) (>60) mL/min BUN/Creatinine Ratio (14-18) Glucose (80-115) mg/dL POC Glucose (80-115) mg/dL Serum Osmolality (280-300) mosm/kg Lactic Acid (0.4-2.0) mmol/L Uric Acid (3.5-7.2) mg/dL Calcium (8.5-10.1) mg/dL Phosphorus (2.6-4.7) mg/dL Magnesium (1.8-2.4) mg/dl Total Bilirubin (0.2-1.0) mg/dL AST (15-37) U/L ALT (16-63) U/L Alkaline Phosphatase (46-116) U/L Lactate Dehydrogenase (85-227) U/L C-Reactive Protein (<1.0) mg/dL NT-Pro-B Natriuret Pep (0-125) pg/mL Total Protein (6.4-8.2) g/dl Albumin (3.4-5.0) g/dl Globulin gm/dL Albumin/Globulin Ratio (1-2) Lipase (73-393) U/L Free T4 (0.76-1.46) ng/dL TSH 3rd Generation (0.358-3.74) uIU/mL Urine Color (Yellow) Urine Appearance (Clear) Urine pH (5.0-8.0) Ur Specific [place] (1.005-1.030) Urine Protein (Negative) Urine Glucose (UA) (Negative) Urine Ketones (Negative) Urine Occult Blood (Negative) Urine Nitrite (Negative) Urine Bilirubin (Negative) Urine Urobilinogen (0.2-1.0) Ur Leukocyte Esterase (Negative) U Hyaline Cast (Auto) (0-5) /lpf Urine RBC (0-5) /hpf Urine WBC (0-5) /hpf Ur Epithelial Cells (0-5) /hpf Urine Bacteria (FEW) /hpf Urine Mucus (FEW) /hpf Ketones (0.0-0.3) mM Influenza Type A RNA Negative (NEGATIVE) Influenza Type B RNA Negative (NEGATIVE) SARS-CoV-2 RNA (DUSTY) Negative (NEGATIVE) 08/02/20 08/02/20 08/02/20 Range/Units 19:00 19:00 19:00 WBC (4.23-9.07) K/mm3 RBC (4.63-6.08) M/mm3 Hgb (13.7-17.5) gm/dl Hct (40.1-51.0) % MCV (79.0-92.2) fl MCH (25.7-32.2) pg MCHC (32.2-35.5) g/dl RDW Std Deviation (35.1-43.9) fL Plt Count (163-337) K/mm3 MPV (9.4-12.3) fl Neut % (Auto) (34.0-67.9) % Lymph % (Auto) (21.8-53.1) % Starr % (Auto) (5.3-12.2) % Eos % (Auto) (0.8-7.0) Baso % (Auto) (0.1-1.2) % Neut # (Auto) (1.78-5.38) K/mm3 Lymph # (Auto) (1.32-3.57) K/mm3 Starr # (Auto) (0.30-0.82) K/mm3 Eos # (Auto) (0.04-0.54) K/mm3 Baso # (Auto) (0.01-0.08) K/mm3 ESR (0-15) mm/hr PT (9.7-12.0) SECONDS INR APTT (21.7-31.4) SECONDS Puncture Site ABG pH (7.35-7.45) ABG pCO2 (35.0-45.0) mmHg ABG pO2 (80.0-100.0) mmHg ABG HCO3 (22.0-26.0) meq/L ABG O2 Saturation (96.0-97.0) % ABG Base Excess (-2-2.0) Codey Test A-a Gradient mmHg O2 Delivery Device Oxygen Flow Rate FiO2 (21.00-100.00) % Sodium 126 L (136-145) mEq/L Potassium 4.5 (3.5-5.1) mEq/L Chloride 87 L (98-107) mEq/L Carbon Dioxide 12 L D (21-32) mEq/L Anion Gap 31.5 H (5-15) BUN 42 H (7-18) mg/dL Creatinine 1.9 H (0.7-1.3) mg/dL Est Cr Clr Drug Dosing 39.71 mL/min Estimated GFR (MDRD) 35 (>60) mL/min BUN/Creatinine Ratio 22.1 H (14-18) Glucose 586 H (80-115) mg/dL POC Glucose (80-115) mg/dL Serum Osmolality 314 H (280-300) mosm/kg Lactic Acid 2.6 H* (0.4-2.0) mmol/L Uric Acid 5.8 (3.5-7.2) mg/dL Calcium 9.3 (8.5-10.1) mg/dL Phosphorus 5.2 H (2.6-4.7) mg/dL Magnesium 1.6 L (1.8-2.4) mg/dl Total Bilirubin 0.6 (0.2-1.0) mg/dL AST 26 (15-37) U/L ALT 44 (16-63) U/L Alkaline Phosphatase 100 (46-116) U/L Lactate Dehydrogenase (85-227) U/L C-Reactive Protein 1.4 H* (<1.0) mg/dL NT-Pro-B Natriuret Pep (0-125) pg/mL Total Protein 6.9 (6.4-8.2) g/dl Albumin 3.3 L (3.4-5.0) g/dl Globulin 3.6 gm/dL Albumin/Globulin Ratio 0.9 L (1-2) Lipase 88 (73-393) U/L Free T4 (0.76-1.46) ng/dL TSH 3rd Generation (0.358-3.74) uIU/mL Urine Color (Yellow) Urine Appearance (Clear) Urine pH (5.0-8.0) Ur Specific [place] (1.005-1.030) Urine Protein (Negative) Urine Glucose (UA) (Negative) Urine Ketones (Negative) Urine Occult Blood (Negative) Urine Nitrite (Negative) Urine Bilirubin (Negative) Urine Urobilinogen (0.2-1.0) Ur Leukocyte Esterase (Negative) U Hyaline Cast (Auto) (0-5) /lpf Urine RBC (0-5) /hpf Urine WBC (0-5) /hpf Ur Epithelial Cells (0-5) /hpf Urine Bacteria (FEW) /hpf Urine Mucus (FEW) /hpf Ketones 7.05 (0.0-0.3) mM Influenza Type A RNA (NEGATIVE) Influenza Type B RNA (NEGATIVE) SARS-CoV-2 RNA (DUSTY) (NEGATIVE) 08/02/20 08/02/20 08/02/20 Range/Units 19:00 19:00 19:00 WBC (4.23-9.07) K/mm3 RBC (4.63-6.08) M/mm3 Hgb (13.7-17.5) gm/dl Hct (40.1-51.0) % MCV (79.0-92.2) fl MCH (25.7-32.2) pg MCHC (32.2-35.5) g/dl RDW Std Deviation (35.1-43.9) fL Plt Count (163-337) K/mm3 MPV (9.4-12.3) fl Neut % (Auto) (34.0-67.9) % Lymph % (Auto) (21.8-53.1) % Starr % (Auto) (5.3-12.2) % Eos % (Auto) (0.8-7.0) Baso % (Auto) (0.1-1.2) % Neut # (Auto) (1.78-5.38) K/mm3 Lymph # (Auto) (1.32-3.57) K/mm3 Starr # (Auto) (0.30-0.82) K/mm3 Eos # (Auto) (0.04-0.54) K/mm3 Baso # (Auto) (0.01-0.08) K/mm3 ESR 27 H (0-15) mm/hr PT 10.5 (9.7-12.0) SECONDS INR 0.98 APTT 30.9 (21.7-31.4) SECONDS Puncture Site ABG pH (7.35-7.45) ABG pCO2 (35.0-45.0) mmHg ABG pO2 (80.0-100.0) mmHg ABG HCO3 (22.0-26.0) meq/L ABG O2 Saturation (96.0-97.0) % ABG Base Excess (-2-2.0) Codey Test A-a Gradient mmHg O2 Delivery Device Oxygen Flow Rate FiO2 (21.00-100.00) % Sodium (136-145) mEq/L Potassium (3.5-5.1) mEq/L Chloride (98-107) mEq/L Carbon Dioxide (21-32) mEq/L Anion Gap (5-15) BUN (7-18) mg/dL Creatinine (0.7-1.3) mg/dL Est Cr Clr Drug Dosing mL/min Estimated GFR (MDRD) (>60) mL/min BUN/Creatinine Ratio (14-18) Glucose (80-115) mg/dL POC Glucose (80-115) mg/dL Serum Osmolality (280-300) mosm/kg Lactic Acid (0.4-2.0) mmol/L Uric Acid (3.5-7.2) mg/dL Calcium (8.5-10.1) mg/dL Phosphorus (2.6-4.7) mg/dL Magnesium (1.8-2.4) mg/dl Total Bilirubin (0.2-1.0) mg/dL AST (15-37) U/L ALT (16-63) U/L Alkaline Phosphatase (46-116) U/L Lactate Dehydrogenase (85-227) U/L C-Reactive Protein (<1.0) mg/dL NT-Pro-B Natriuret Pep 998 H (0-125) pg/mL Total Protein (6.4-8.2) g/dl Albumin (3.4-5.0) g/dl Globulin gm/dL Albumin/Globulin Ratio (1-2) Lipase (73-393) U/L Free T4 (0.76-1.46) ng/dL TSH 3rd Generation (0.358-3.74) uIU/mL Urine Color (Yellow) Urine Appearance (Clear) Urine pH (5.0-8.0) Ur Specific [place] (1.005-1.030) Urine Protein (Negative) Urine Glucose (UA) (Negative) Urine Ketones (Negative) Urine Occult Blood (Negative) Urine Nitrite (Negative) Urine Bilirubin (Negative) Urine Urobilinogen (0.2-1.0) Ur Leukocyte Esterase (Negative) U Hyaline Cast (Auto) (0-5) /lpf Urine RBC (0-5) /hpf Urine WBC (0-5) /hpf Ur Epithelial Cells (0-5) /hpf Urine Bacteria (FEW) /hpf Urine Mucus (FEW) /hpf Ketones (0.0-0.3) mM Influenza Type A RNA (NEGATIVE) Influenza Type B RNA (NEGATIVE) SARS-CoV-2 RNA (DUSTY) (NEGATIVE) 08/02/20 08/02/20 08/02/20 Range/Units 19:00 19:03 20:45 WBC (4.23-9.07) K/mm3 RBC (4.63-6.08) M/mm3 Hgb (13.7-17.5) gm/dl Hct (40.1-51.0) % MCV (79.0-92.2) fl MCH (25.7-32.2) pg MCHC (32.2-35.5) g/dl RDW Std Deviation (35.1-43.9) fL Plt Count (163-337) K/mm3 MPV (9.4-12.3) fl Neut % (Auto) (34.0-67.9) % Lymph % (Auto) (21.8-53.1) % Starr % (Auto) (5.3-12.2) % Eos % (Auto) (0.8-7.0) Baso % (Auto) (0.1-1.2) % Neut # (Auto) (1.78-5.38) K/mm3 Lymph # (Auto) (1.32-3.57) K/mm3 Starr # (Auto) (0.30-0.82) K/mm3 Eos # (Auto) (0.04-0.54) K/mm3 Baso # (Auto) (0.01-0.08) K/mm3 ESR (0-15) mm/hr PT (9.7-12.0) SECONDS INR APTT (21.7-31.4) SECONDS Puncture Site ABG pH (7.35-7.45) ABG pCO2 (35.0-45.0) mmHg ABG pO2 (80.0-100.0) mmHg ABG HCO3 (22.0-26.0) meq/L ABG O2 Saturation (96.0-97.0) % ABG Base Excess (-2-2.0) Codey Test A-a Gradient mmHg O2 Delivery Device Oxygen Flow Rate FiO2 (21.00-100.00) % Sodium (136-145) mEq/L Potassium (3.5-5.1) mEq/L Chloride (98-107) mEq/L Carbon Dioxide (21-32) mEq/L Anion Gap (5-15) BUN (7-18) mg/dL Creatinine (0.7-1.3) mg/dL Est Cr Clr Drug Dosing mL/min Estimated GFR (MDRD) (>60) mL/min BUN/Creatinine Ratio (14-18) Glucose 499 H (80-115) mg/dL POC Glucose (80-115) mg/dL Serum Osmolality (280-300) mosm/kg Lactic Acid (0.4-2.0) mmol/L Uric Acid (3.5-7.2) mg/dL Calcium (8.5-10.1) mg/dL Phosphorus (2.6-4.7) mg/dL Magnesium (1.8-2.4) mg/dl Total Bilirubin (0.2-1.0) mg/dL AST (15-37) U/L ALT (16-63) U/L Alkaline Phosphatase (46-116) U/L Lactate Dehydrogenase (85-227) U/L C-Reactive Protein (<1.0) mg/dL NT-Pro-B Natriuret Pep (0-125) pg/mL Total Protein (6.4-8.2) g/dl Albumin (3.4-5.0) g/dl Globulin gm/dL Albumin/Globulin Ratio (1-2) Lipase (73-393) U/L Free T4 (0.76-1.46) ng/dL TSH 3rd Generation 6.227 H (0.358-3.74) uIU/mL Urine Color (Yellow) Urine Appearance (Clear) Urine pH (5.0-8.0) Ur Specific [place] (1.005-1.030) Urine Protein (Negative) Urine Glucose (UA) (Negative) Urine Ketones (Negative) Urine Occult Blood (Negative) Urine Nitrite (Negative) Urine Bilirubin (Negative) Urine Urobilinogen (0.2-1.0) Ur Leukocyte Esterase (Negative) U Hyaline Cast (Auto) (0-5) /lpf Urine RBC (0-5) /hpf Urine WBC (0-5) /hpf Ur Epithelial Cells (0-5) /hpf Urine Bacteria (FEW) /hpf Urine Mucus (FEW) /hpf Ketones (0.0-0.3) mM Influenza Type A RNA (NEGATIVE) Influenza Type B RNA (NEGATIVE) SARS-CoV-2 RNA (DUSTY) Negative (NEGATIVE) 08/02/20 08/02/20 08/02/20 Range/Units 22:05 22:05 22:45 WBC (4.23-9.07) K/mm3 RBC (4.63-6.08) M/mm3 Hgb (13.7-17.5) gm/dl Hct (40.1-51.0) % MCV (79.0-92.2) fl MCH (25.7-32.2) pg MCHC (32.2-35.5) g/dl RDW Std Deviation (35.1-43.9) fL Plt Count (163-337) K/mm3 MPV (9.4-12.3) fl Neut % (Auto) (34.0-67.9) % Lymph % (Auto) (21.8-53.1) % Starr % (Auto) (5.3-12.2) % Eos % (Auto) (0.8-7.0) Baso % (Auto) (0.1-1.2) % Neut # (Auto) (1.78-5.38) K/mm3 Lymph # (Auto) (1.32-3.57) K/mm3 Starr # (Auto) (0.30-0.82) K/mm3 Eos # (Auto) (0.04-0.54) K/mm3 Baso # (Auto) (0.01-0.08) K/mm3 ESR (0-15) mm/hr PT (9.7-12.0) SECONDS INR APTT (21.7-31.4) SECONDS Puncture Site ABG pH (7.35-7.45) ABG pCO2 (35.0-45.0) mmHg ABG pO2 (80.0-100.0) mmHg ABG HCO3 (22.0-26.0) meq/L ABG O2 Saturation (96.0-97.0) % ABG Base Excess (-2-2.0) Codey Test A-a Gradient mmHg O2 Delivery Device Oxygen Flow Rate FiO2 (21.00-100.00) % Sodium 129 L (136-145) mEq/L Potassium 4.0 (3.5-5.1) mEq/L Chloride 92 L (98-107) mEq/L Carbon Dioxide 18 L (21-32) mEq/L Anion Gap 23.0 H (5-15) BUN 40 H (7-18) mg/dL Creatinine 1.8 H (0.7-1.3) mg/dL Est Cr Clr Drug Dosing 41.91 mL/min Estimated GFR (MDRD) 37 (>60) mL/min BUN/Creatinine Ratio 22.2 H (14-18) Glucose 441 H (80-115) mg/dL POC Glucose (80-115) mg/dL Serum Osmolality (280-300) mosm/kg Lactic Acid (0.4-2.0) mmol/L Uric Acid (3.5-7.2) mg/dL Calcium 8.6 (8.5-10.1) mg/dL Phosphorus (2.6-4.7) mg/dL Magnesium (1.8-2.4) mg/dl Total Bilirubin (0.2-1.0) mg/dL AST (15-37) U/L ALT (16-63) U/L Alkaline Phosphatase (46-116) U/L Lactate Dehydrogenase 148 (85-227) U/L C-Reactive Protein (<1.0) mg/dL NT-Pro-B Natriuret Pep (0-125) pg/mL Total Protein (6.4-8.2) g/dl Albumin (3.4-5.0) g/dl Globulin gm/dL Albumin/Globulin Ratio (1-2) Lipase (73-393) U/L Free T4 (0.76-1.46) ng/dL TSH 3rd Generation (0.358-3.74) uIU/mL Urine Color Yellow (Yellow) Urine Appearance Clear (Clear) Urine pH 5.5 (5.0-8.0) Ur Specific [place] 1.025 (1.005-1.030) Urine Protein Negative (Negative) Urine Glucose (UA) 2+ H (Negative) Urine Ketones 4+ H (Negative) Urine Occult Blood Negative (Negative) Urine Nitrite Negative (Negative) Urine Bilirubin Negative (Negative) Urine Urobilinogen 0.2 (0.2-1.0) Ur Leukocyte Esterase Negative (Negative) U Hyaline Cast (Auto) 5-10 H (0-5) /lpf Urine RBC 0-5 (0-5) /hpf Urine WBC 0-5 (0-5) /hpf Ur Epithelial Cells 0-5 (0-5) /hpf Urine Bacteria Few (FEW) /hpf Urine Mucus Not seen (FEW) /hpf Ketones (0.0-0.3) mM Influenza Type A RNA (NEGATIVE) Influenza Type B RNA (NEGATIVE) SARS-CoV-2 RNA (DUSTY) (NEGATIVE) 08/02/20 08/02/20 08/03/20 Range/Units 22:50 23:42 00:44 WBC (4.23-9.07) K/mm3 RBC (4.63-6.08) M/mm3 Hgb (13.7-17.5) gm/dl Hct (40.1-51.0) % MCV (79.0-92.2) fl MCH (25.7-32.2) pg MCHC (32.2-35.5) g/dl RDW Std Deviation (35.1-43.9) fL Plt Count (163-337) K/mm3 MPV (9.4-12.3) fl Neut % (Auto) (34.0-67.9) % Lymph % (Auto) (21.8-53.1) % Starr % (Auto) (5.3-12.2) % Eos % (Auto) (0.8-7.0) Baso % (Auto) (0.1-1.2) % Neut # (Auto) (1.78-5.38) K/mm3 Lymph # (Auto) (1.32-3.57) K/mm3 Starr # (Auto) (0.30-0.82) K/mm3 Eos # (Auto) (0.04-0.54) K/mm3 Baso # (Auto) (0.01-0.08) K/mm3 ESR (0-15) mm/hr PT (9.7-12.0) SECONDS INR APTT (21.7-31.4) SECONDS Puncture Site ABG pH (7.35-7.45) ABG pCO2 (35.0-45.0) mmHg ABG pO2 (80.0-100.0) mmHg ABG HCO3 (22.0-26.0) meq/L ABG O2 Saturation (96.0-97.0) % ABG Base Excess (-2-2.0) Codey Test A-a Gradient mmHg O2 Delivery Device Oxygen Flow Rate FiO2 (21.00-100.00) % Sodium (136-145) mEq/L Potassium (3.5-5.1) mEq/L Chloride (98-107) mEq/L Carbon Dioxide (21-32) mEq/L Anion Gap (5-15) BUN (7-18) mg/dL Creatinine (0.7-1.3) mg/dL Est Cr Clr Drug Dosing mL/min Estimated GFR (MDRD) (>60) mL/min BUN/Creatinine Ratio (14-18) Glucose 416 H (80-115) mg/dL POC Glucose 383 H 388 H (80-115) mg/dL Serum Osmolality (280-300) mosm/kg Lactic Acid (0.4-2.0) mmol/L Uric Acid (3.5-7.2) mg/dL Calcium (8.5-10.1) mg/dL Phosphorus (2.6-4.7) mg/dL Magnesium (1.8-2.4) mg/dl Total Bilirubin (0.2-1.0) mg/dL AST (15-37) U/L ALT (16-63) U/L Alkaline Phosphatase (46-116) U/L Lactate Dehydrogenase (85-227) U/L C-Reactive Protein (<1.0) mg/dL NT-Pro-B Natriuret Pep (0-125) pg/mL Total Protein (6.4-8.2) g/dl Albumin (3.4-5.0) g/dl Globulin gm/dL Albumin/Globulin Ratio (1-2) Lipase (73-393) U/L Free T4 (0.76-1.46) ng/dL TSH 3rd Generation (0.358-3.74) uIU/mL Urine Color (Yellow) Urine Appearance (Clear) Urine pH (5.0-8.0) Ur Specific [place] (1.005-1.030) Urine Protein (Negative) Urine Glucose (UA) (Negative) Urine Ketones (Negative) Urine Occult Blood (Negative) Urine Nitrite (Negative) Urine Bilirubin (Negative) Urine Urobilinogen (0.2-1.0) Ur Leukocyte Esterase (Negative) U Hyaline Cast (Auto) (0-5) /lpf Urine RBC (0-5) /hpf Urine WBC (0-5) /hpf Ur Epithelial Cells (0-5) /hpf Urine Bacteria (FEW) /hpf Urine Mucus (FEW) /hpf Ketones (0.0-0.3) mM Influenza Type A RNA (NEGATIVE) Influenza Type B RNA (NEGATIVE) SARS-CoV-2 RNA (DUSTY) (NEGATIVE) 08/03/20 08/03/20 08/03/20 Range/Units 01:00 01:00 01:48 WBC (4.23-9.07) K/mm3 RBC (4.63-6.08) M/mm3 Hgb (13.7-17.5) gm/dl Hct (40.1-51.0) % MCV (79.0-92.2) fl MCH (25.7-32.2) pg MCHC (32.2-35.5) g/dl RDW Std Deviation (35.1-43.9) fL Plt Count (163-337) K/mm3 MPV (9.4-12.3) fl Neut % (Auto) (34.0-67.9) % Lymph % (Auto) (21.8-53.1) % Starr % (Auto) (5.3-12.2) % Eos % (Auto) (0.8-7.0) Baso % (Auto) (0.1-1.2) % Neut # (Auto) (1.78-5.38) K/mm3 Lymph # (Auto) (1.32-3.57) K/mm3 Starr # (Auto) (0.30-0.82) K/mm3 Eos # (Auto) (0.04-0.54) K/mm3 Baso # (Auto) (0.01-0.08) K/mm3 ESR (0-15) mm/hr PT (9.7-12.0) SECONDS INR APTT (21.7-31.4) SECONDS Puncture Site ABG pH (7.35-7.45) ABG pCO2 (35.0-45.0) mmHg ABG pO2 (80.0-100.0) mmHg ABG HCO3 (22.0-26.0) meq/L ABG O2 Saturation (96.0-97.0) % ABG Base Excess (-2-2.0) Codey Test A-a Gradient mmHg O2 Delivery Device Oxygen Flow Rate FiO2 (21.00-100.00) % Sodium 131 L (136-145) mEq/L Potassium 3.3 L (3.5-5.1) mEq/L Chloride 97 L (98-107) mEq/L Carbon Dioxide 22 (21-32) mEq/L Anion Gap 15.3 H (5-15) BUN 36 H (7-18) mg/dL Creatinine 1.5 H (0.7-1.3) mg/dL Est Cr Clr Drug Dosing 50.30 mL/min Estimated GFR (MDRD) 46 (>60) mL/min BUN/Creatinine Ratio 24.0 H (14-18) Glucose 326 H (80-115) mg/dL POC Glucose 366 H (80-115) mg/dL Serum Osmolality (280-300) mosm/kg Lactic Acid 1.3 (0.4-2.0) mmol/L Uric Acid (3.5-7.2) mg/dL Calcium 8.4 L (8.5-10.1) mg/dL Phosphorus (2.6-4.7) mg/dL Magnesium (1.8-2.4) mg/dl Total Bilirubin (0.2-1.0) mg/dL AST (15-37) U/L ALT (16-63) U/L Alkaline Phosphatase (46-116) U/L Lactate Dehydrogenase (85-227) U/L C-Reactive Protein (<1.0) mg/dL NT-Pro-B Natriuret Pep (0-125) pg/mL Total Protein (6.4-8.2) g/dl Albumin (3.4-5.0) g/dl Globulin gm/dL Albumin/Globulin Ratio (1-2) Lipase (73-393) U/L Free T4 (0.76-1.46) ng/dL TSH 3rd Generation (0.358-3.74) uIU/mL Urine Color (Yellow) Urine Appearance (Clear) Urine pH (5.0-8.0) Ur Specific [place] (1.005-1.030) Urine Protein (Negative) Urine Glucose (UA) (Negative) Urine Ketones (Negative) Urine Occult Blood (Negative) Urine Nitrite (Negative) Urine Bilirubin (Negative) Urine Urobilinogen (0.2-1.0) Ur Leukocyte Esterase (Negative) U Hyaline Cast (Auto) (0-5) /lpf Urine RBC (0-5) /hpf Urine WBC (0-5) /hpf Ur Epithelial Cells (0-5) /hpf Urine Bacteria (FEW) /hpf Urine Mucus (FEW) /hpf Ketones (0.0-0.3) mM Influenza Type A RNA (NEGATIVE) Influenza Type B RNA (NEGATIVE) SARS-CoV-2 RNA (DUSTY) (NEGATIVE) 08/03/20 08/03/20 08/03/20 Range/Units 02:55 03:51 04:57 WBC (4.23-9.07) K/mm3 RBC (4.63-6.08) M/mm3 Hgb (13.7-17.5) gm/dl Hct (40.1-51.0) % MCV (79.0-92.2) fl MCH (25.7-32.2) pg MCHC (32.2-35.5) g/dl RDW Std Deviation (35.1-43.9) fL Plt Count (163-337) K/mm3 MPV (9.4-12.3) fl Neut % (Auto) (34.0-67.9) % Lymph % (Auto) (21.8-53.1) % Starr % (Auto) (5.3-12.2) % Eos % (Auto) (0.8-7.0) Baso % (Auto) (0.1-1.2) % Neut # (Auto) (1.78-5.38) K/mm3 Lymph # (Auto) (1.32-3.57) K/mm3 Starr # (Auto) (0.30-0.82) K/mm3 Eos # (Auto) (0.04-0.54) K/mm3 Baso # (Auto) (0.01-0.08) K/mm3 ESR (0-15) mm/hr PT (9.7-12.0) SECONDS INR APTT (21.7-31.4) SECONDS Puncture Site ABG pH (7.35-7.45) ABG pCO2 (35.0-45.0) mmHg ABG pO2 (80.0-100.0) mmHg ABG HCO3 (22.0-26.0) meq/L ABG O2 Saturation (96.0-97.0) % ABG Base Excess (-2-2.0) Codey Test A-a Gradient mmHg O2 Delivery Device Oxygen Flow Rate FiO2 (21.00-100.00) % Sodium (136-145) mEq/L Potassium (3.5-5.1) mEq/L Chloride (98-107) mEq/L Carbon Dioxide (21-32) mEq/L Anion Gap (5-15) BUN (7-18) mg/dL Creatinine (0.7-1.3) mg/dL Est Cr Clr Drug Dosing mL/min Estimated GFR (MDRD) (>60) mL/min BUN/Creatinine Ratio (14-18) Glucose (80-115) mg/dL POC Glucose 269 H 214 H 181 H (80-115) mg/dL Serum Osmolality (280-300) mosm/kg Lactic Acid (0.4-2.0) mmol/L Uric Acid (3.5-7.2) mg/dL Calcium (8.5-10.1) mg/dL Phosphorus (2.6-4.7) mg/dL Magnesium (1.8-2.4) mg/dl Total Bilirubin (0.2-1.0) mg/dL AST (15-37) U/L ALT (16-63) U/L Alkaline Phosphatase (46-116) U/L Lactate Dehydrogenase (85-227) U/L C-Reactive Protein (<1.0) mg/dL NT-Pro-B Natriuret Pep (0-125) pg/mL Total Protein (6.4-8.2) g/dl Albumin (3.4-5.0) g/dl Globulin gm/dL Albumin/Globulin Ratio (1-2) Lipase (73-393) U/L Free T4 (0.76-1.46) ng/dL TSH 3rd Generation (0.358-3.74) uIU/mL Urine Color (Yellow) Urine Appearance (Clear) Urine pH (5.0-8.0) Ur Specific [place] (1.005-1.030) Urine Protein (Negative) Urine Glucose (UA) (Negative) Urine Ketones (Negative) Urine Occult Blood (Negative) Urine Nitrite (Negative) Urine Bilirubin (Negative) Urine Urobilinogen (0.2-1.0) Ur Leukocyte Esterase (Negative) U Hyaline Cast (Auto) (0-5) /lpf Urine RBC (0-5) /hpf Urine WBC (0-5) /hpf Ur Epithelial Cells (0-5) /hpf Urine Bacteria (FEW) /hpf Urine Mucus (FEW) /hpf Ketones (0.0-0.3) mM Influenza Type A RNA (NEGATIVE) Influenza Type B RNA (NEGATIVE) SARS-CoV-2 RNA (DUSTY) (NEGATIVE) 08/03/20 08/03/20 08/03/20 Range/Units 05:08 05:08 05:08 WBC 7.95 (4.23-9.07) K/mm3 RBC 3.95 L (4.63-6.08) M/mm3 Hgb 12.1 L (13.7-17.5) gm/dl Hct 34.2 L (40.1-51.0) % MCV 86.6 D (79.0-92.2) fl MCH 30.6 (25.7-32.2) pg MCHC 35.4 (32.2-35.5) g/dl RDW Std Deviation 38.0 (35.1-43.9) fL Plt Count 230 (163-337) K/mm3 MPV 8.7 L (9.4-12.3) fl Neut % (Auto) 81.0 H (34.0-67.9) % Lymph % (Auto) 10.3 L (21.8-53.1) % Starr % (Auto) 7.9 (5.3-12.2) % Eos % (Auto) 0.4 L (0.8-7.0) Baso % (Auto) 0.3 (0.1-1.2) % Neut # (Auto) 6.44 H (1.78-5.38) K/mm3 Lymph # (Auto) 0.82 L (1.32-3.57) K/mm3 Starr # (Auto) 0.63 (0.30-0.82) K/mm3 Eos # (Auto) 0.03 L (0.04-0.54) K/mm3 Baso # (Auto) 0.02 (0.01-0.08) K/mm3 ESR (0-15) mm/hr PT (9.7-12.0) SECONDS INR APTT (21.7-31.4) SECONDS Puncture Site ABG pH (7.35-7.45) ABG pCO2 (35.0-45.0) mmHg ABG pO2 (80.0-100.0) mmHg ABG HCO3 (22.0-26.0) meq/L ABG O2 Saturation (96.0-97.0) % ABG Base Excess (-2-2.0) Codey Test A-a Gradient mmHg O2 Delivery Device Oxygen Flow Rate FiO2 (21.00-100.00) % Sodium 136 (136-145) mEq/L Potassium 3.3 L (3.5-5.1) mEq/L Chloride 101 (98-107) mEq/L Carbon Dioxide 24 (21-32) mEq/L Anion Gap 14.3 (5-15) BUN 33 H (7-18) mg/dL Creatinine 1.4 H (0.7-1.3) mg/dL Est Cr Clr Drug Dosing 53.89 mL/min Estimated GFR (MDRD) 50 (>60) mL/min BUN/Creatinine Ratio 23.6 H (14-18) Glucose 154 H (80-115) mg/dL POC Glucose (80-115) mg/dL Serum Osmolality (280-300) mosm/kg Lactic Acid (0.4-2.0) mmol/L Uric Acid (3.5-7.2) mg/dL Calcium 8.6 (8.5-10.1) mg/dL Phosphorus 2.0 L (2.6-4.7) mg/dL Magnesium 2.4 (1.8-2.4) mg/dl Total Bilirubin (0.2-1.0) mg/dL AST (15-37) U/L ALT (16-63) U/L Alkaline Phosphatase (46-116) U/L Lactate Dehydrogenase (85-227) U/L C-Reactive Protein (<1.0) mg/dL NT-Pro-B Natriuret Pep (0-125) pg/mL Total Protein (6.4-8.2) g/dl Albumin (3.4-5.0) g/dl Globulin gm/dL Albumin/Globulin Ratio (1-2) Lipase (73-393) U/L Free T4 (0.76-1.46) ng/dL TSH 3rd Generation (0.358-3.74) uIU/mL Urine Color (Yellow) Urine Appearance (Clear) Urine pH (5.0-8.0) Ur Specific [place] (1.005-1.030) Urine Protein (Negative) Urine Glucose (UA) (Negative) Urine Ketones (Negative) Urine Occult Blood (Negative) Urine Nitrite (Negative) Urine Bilirubin (Negative) Urine Urobilinogen (0.2-1.0) Ur Leukocyte Esterase (Negative) U Hyaline Cast (Auto) (0-5) /lpf Urine RBC (0-5) /hpf Urine WBC (0-5) /hpf Ur Epithelial Cells (0-5) /hpf Urine Bacteria (FEW) /hpf Urine Mucus (FEW) /hpf Ketones (0.0-0.3) mM Influenza Type A RNA (NEGATIVE) Influenza Type B RNA (NEGATIVE) SARS-CoV-2 RNA (DUSTY) (NEGATIVE) 08/03/20 08/03/20 08/03/20 Range/Units 05:08 06:03 06:54 WBC (4.23-9.07) K/mm3 RBC (4.63-6.08) M/mm3 Hgb (13.7-17.5) gm/dl Hct (40.1-51.0) % MCV (79.0-92.2) fl MCH (25.7-32.2) pg MCHC (32.2-35.5) g/dl RDW Std Deviation (35.1-43.9) fL Plt Count (163-337) K/mm3 MPV (9.4-12.3) fl Neut % (Auto) (34.0-67.9) % Lymph % (Auto) (21.8-53.1) % Starr % (Auto) (5.3-12.2) % Eos % (Auto) (0.8-7.0) Baso % (Auto) (0.1-1.2) % Neut # (Auto) (1.78-5.38) K/mm3 Lymph # (Auto) (1.32-3.57) K/mm3 Starr # (Auto) (0.30-0.82) K/mm3 Eos # (Auto) (0.04-0.54) K/mm3 Baso # (Auto) (0.01-0.08) K/mm3 ESR (0-15) mm/hr PT (9.7-12.0) SECONDS INR APTT (21.7-31.4) SECONDS Puncture Site ABG pH (7.35-7.45) ABG pCO2 (35.0-45.0) mmHg ABG pO2 (80.0-100.0) mmHg ABG HCO3 (22.0-26.0) meq/L ABG O2 Saturation (96.0-97.0) % ABG Base Excess (-2-2.0) Codey Test A-a Gradient mmHg O2 Delivery Device Oxygen Flow Rate FiO2 (21.00-100.00) % Sodium (136-145) mEq/L Potassium (3.5-5.1) mEq/L Chloride (98-107) mEq/L Carbon Dioxide (21-32) mEq/L Anion Gap (5-15) BUN (7-18) mg/dL Creatinine (0.7-1.3) mg/dL Est Cr Clr Drug Dosing mL/min Estimated GFR (MDRD) (>60) mL/min BUN/Creatinine Ratio (14-18) Glucose (80-115) mg/dL POC Glucose 139 H 134 H (80-115) mg/dL Serum Osmolality (280-300) mosm/kg Lactic Acid (0.4-2.0) mmol/L Uric Acid (3.5-7.2) mg/dL Calcium (8.5-10.1) mg/dL Phosphorus (2.6-4.7) mg/dL Magnesium (1.8-2.4) mg/dl Total Bilirubin (0.2-1.0) mg/dL AST (15-37) U/L ALT (16-63) U/L Alkaline Phosphatase (46-116) U/L Lactate Dehydrogenase (85-227) U/L C-Reactive Protein (<1.0) mg/dL NT-Pro-B Natriuret Pep (0-125) pg/mL Total Protein (6.4-8.2) g/dl Albumin (3.4-5.0) g/dl Globulin gm/dL Albumin/Globulin Ratio (1-2) Lipase (73-393) U/L Free T4 1.04 (0.76-1.46) ng/dL TSH 3rd Generation (0.358-3.74) uIU/mL Urine Color (Yellow) Urine Appearance (Clear) Urine pH (5.0-8.0) Ur Specific [place] (1.005-1.030) Urine Protein (Negative) Urine Glucose (UA) (Negative) Urine Ketones (Negative) Urine Occult Blood (Negative) Urine Nitrite (Negative) Urine Bilirubin (Negative) Urine Urobilinogen (0.2-1.0) Ur Leukocyte Esterase (Negative) U Hyaline Cast (Auto) (0-5) /lpf Urine RBC (0-5) /hpf Urine WBC (0-5) /hpf Ur Epithelial Cells (0-5) /hpf Urine Bacteria (FEW) /hpf Urine Mucus (FEW) /hpf Ketones (0.0-0.3) mM Influenza Type A RNA (NEGATIVE) Influenza Type B RNA (NEGATIVE) SARS-CoV-2 RNA (DUSTY) (NEGATIVE) 08/03/20 08/03/20 Range/Units 07:54 08:53 WBC (4.23-9.07) K/mm3 RBC (4.63-6.08) M/mm3 Hgb (13.7-17.5) gm/dl Hct (40.1-51.0) % MCV (79.0-92.2) fl MCH (25.7-32.2) pg MCHC (32.2-35.5) g/dl RDW Std Deviation (35.1-43.9) fL Plt Count (163-337) K/mm3 MPV (9.4-12.3) fl Neut % (Auto) (34.0-67.9) % Lymph % (Auto) (21.8-53.1) % Starr % (Auto) (5.3-12.2) % Eos % (Auto) (0.8-7.0) Baso % (Auto) (0.1-1.2) % Neut # (Auto) (1.78-5.38) K/mm3 Lymph # (Auto) (1.32-3.57) K/mm3 Starr # (Auto) (0.30-0.82) K/mm3 Eos # (Auto) (0.04-0.54) K/mm3 Baso # (Auto) (0.01-0.08) K/mm3 ESR (0-15) mm/hr PT (9.7-12.0) SECONDS INR APTT (21.7-31.4) SECONDS Puncture Site ABG pH (7.35-7.45) ABG pCO2 (35.0-45.0) mmHg ABG pO2 (80.0-100.0) mmHg ABG HCO3 (22.0-26.0) meq/L ABG O2 Saturation (96.0-97.0) % ABG Base Excess (-2-2.0) Codey Test A-a Gradient mmHg O2 Delivery Device Oxygen Flow Rate FiO2 (21.00-100.00) % Sodium (136-145) mEq/L Potassium (3.5-5.1) mEq/L Chloride (98-107) mEq/L Carbon Dioxide (21-32) mEq/L Anion Gap (5-15) BUN (7-18) mg/dL Creatinine (0.7-1.3) mg/dL Est Cr Clr Drug Dosing mL/min Estimated GFR (MDRD) (>60) mL/min BUN/Creatinine Ratio (14-18) Glucose (80-115) mg/dL POC Glucose 115 120 H (80-115) mg/dL Serum Osmolality (280-300) mosm/kg Lactic Acid (0.4-2.0) mmol/L Uric Acid (3.5-7.2) mg/dL Calcium (8.5-10.1) mg/dL Phosphorus (2.6-4.7) mg/dL Magnesium (1.8-2.4) mg/dl Total Bilirubin (0.2-1.0) mg/dL AST (15-37) U/L ALT (16-63) U/L Alkaline Phosphatase (46-116) U/L Lactate Dehydrogenase (85-227) U/L C-Reactive Protein (<1.0) mg/dL NT-Pro-B Natriuret Pep (0-125) pg/mL Total Protein (6.4-8.2) g/dl Albumin (3.4-5.0) g/dl Globulin gm/dL Albumin/Globulin Ratio (1-2) Lipase (73-393) U/L Free T4 (0.76-1.46) ng/dL TSH 3rd Generation (0.358-3.74) uIU/mL Urine Color (Yellow) Urine Appearance (Clear) Urine pH (5.0-8.0) Ur Specific [place] (1.005-1.030) Urine Protein (Negative) Urine Glucose (UA) (Negative) Urine Ketones (Negative) Urine Occult Blood (Negative) Urine Nitrite (Negative) Urine Bilirubin (Negative) Urine Urobilinogen (0.2-1.0) Ur Leukocyte Esterase (Negative) U Hyaline Cast (Auto) (0-5) /lpf Urine RBC (0-5) /hpf Urine WBC (0-5) /hpf Ur Epithelial Cells (0-5) /hpf Urine Bacteria (FEW) /hpf Urine Mucus (FEW) /hpf Ketones (0.0-0.3) mM Influenza Type A RNA (NEGATIVE) Influenza Type B RNA (NEGATIVE) SARS-CoV-2 RNA (DUSTY) (NEGATIVE) Med Orders - Current: Current Medications Acetaminophen (Tylenol) 650 mg PO Q4H PRN PRN Reason: Pain (Mild 1-3)/fever Hydrocodone Bitart/Acetaminophen ([place] 325-5 Mg) 1 tab PO Q4H PRN PRN Reason: Pain (moderate 4-6) Albuterol/Ipratropium (Duoneb 3.0-0.5 Mg/3 Ml) 3 ml NEB Q4H PRN PRN Reason: Shortness Of Breath/wheezing Promethazine HCl 12.5 mg/ (Sodium Chloride) 50.5 mls @ 100 mls/hr IV Q6H PRN PRN Reason: Nausea/Vomiting Insulin Human Regular 100 unit (/ Sodium Chloride) 100 mls @ 4 mls/hr IV TITRATE REGINALD; Protocol Last Titration: 08/03/20 06:35 Dose: 4 unit/hr, 4 mls/hr Documented by: Dextrose/Sodium Chloride (Dextrose 5%-Normal Saline) 1,000 mls @ 150 mls/hr IV ASDIRECTED REGINALD Last Admin: 08/03/20 04:13 Dose: 150 mls/hr Documented by: Potassium Chloride 10 meq/ (Premix) 100 mls @ 100 mls/hr IV Q1H REGINALD Stop: 08/03/20 12:59 Last Admin: 08/03/20 10:19 Dose: Not Given Documented by: Insulin Glargine (Lantus) 22 unit SUBCUT DAILY REGINALD Last Admin: 08/03/20 09:23 Dose: 22 units Documented by: Latanoprost (Xalatan 0.005% Ophth Soln) 0 ml EYEBOTH DAILY [facility] Last Admin: 08/03/20 09:26 Dose: 1 drop Documented by: Ondansetron HCl (Zofran) 4 mg IV Q6H PRN PRN Reason: Nausea/Vomiting Polyethylene Glycol (Miralax) 17 gm PO DAILY PRN PRN Reason: Constipation Rosuvastatin Calcium (Crestor) 20 mg PO DAILY@2100 [facility] Senna/Docusate Sodium (Senna Plus) 1 tab PO BID PRN PRN Reason: Constipation Zolpidem Tartrate (Ambien) 5 mg PO BEDTIME PRN PRN Reason: Sleep Last Admin: 08/02/20 22:50 Dose: 5 mg Documented by: Discontinued Medications Lactated Ringer's (Ringers, Lactated) 1,000 mls @ 999 mls/hr IV .BOLUS ONE Stop: 08/02/20 19:37 Last Admin: 08/02/20 19:01 Dose: 999 mls/hr Documented by: Insulin Human Regular 100 unit (/ Sodium Chloride) 100 mls @ 4 mls/hr IV TITRATE [facility] Last Infusion: 08/02/20 22:07 Dose: 6 unit/hr, 6 mls/hr Documented by: Sodium Chloride (Normal Saline) 1,000 mls @ 999 mls/hr IV ONETIME ONE Stop: 08/02/20 21:05 Last Admin: 08/02/20 20:10 Dose: 999 mls/hr Documented by: Magnesium Sulfate 4 gm/ Premix 50 mls @ 12.5 mls/hr IV ONETIME ONE Stop: 08/03/20 01:51 Last Admin: 08/02/20 22:41 Dose: 12.5 mls/hr Documented by: Sodium Chloride (Normal Saline) 1,000 mls @ 125 mls/hr IV ASDIRECTED [facility] Stop: 08/03/20 05:59 Last Admin: 08/02/20 22:43 Dose: 125 mls/hr Documented by: Potassium Chloride 10 meq/ (Premix) 100 mls @ 100 mls/hr IV ASDIRECTED ONE Stop: 08/03/20 04:44 Last Admin: 08/03/20 03:45 Dose: 100 mls/hr Documented by: Insulin Glargine (Lantus) 25 unit SUBCUT DAILY [facility] Stop: 08/03/20 00:59 Last Admin: 08/03/20 01:07 Dose: 25 unit Documented by: Metoclopramide HCl (Reglan) 7.5 mg IVPUSH ONETIME ONE Stop: 08/02/20 18:38 Last Admin: 08/02/20 19:00 Dose: 7.5 mg Documented by: Sodium Phosphate (Neutra-Phos) 250 mg PO ONETIME ONE Stop: 08/03/20 10:01 Last Admin: 08/03/20 10:00 Dose: 250 mg Documented by: - Exam General: Reports: Alert, Oriented, Cooperative, No Acute Distress HEENT: Reports: Pupils Equal, Pupils Reactive, EOMI, Mucous Membr. Moist/[place] Neck: Reports: Supple, Other (port-a-cath on left anterior thorax) Lungs: Reports: Clear to Auscultation, Normal Respiratory Effort Cardiovascular: Reports: Regular Rate, Regular Rhythm GI/Abdominal Exam: Normal Bowel Sounds, Soft, Non-Tender, No Organomegaly, No Distention, No Abnormal Bruit, No Mass (Male) Exam: Deferred Rectal (Males) Exam: Deferred Back Exam: Reports: Normal Inspection, Decreased Range of Motion Extremities: Normal Inspection, Normal Range of Motion, Non-Tender, No Pedal Edema, Normal Capillary Refill Skin: Reports: Warm, Dry, Intact Neurological: Reports: No New Focal Deficit Psy/Mental Status: Reports: Alert, Normal Affect, Normal Mood
--- NOTE | 2020-08-03 17:20 | CR ---
Chest: Portable view of the chest was obtained. Comparison: No prior chest imaging is available. Heart size and mediastinum are within normal limits for portable technique. Left-sided infusion port is seen. Lungs are clear with no acute parenchymal change. Bony structures show degenerative spurring within the spine. Osteopenia is also noted. Impression: 1. Findings as noted above. 2. Nothing acute is seen. Diagnostic code #2
[2020-08-03] MEDS ORDERED: Rosuvastatin 10 MG Tab PO SCH (21:00)
== END 2020-08-03 11:37 | disposition home or self-care (01) | DRG 639 ==
LOC: JD.ED 18:03 → JD.ICU 21:45
PROVIDERS: ADMIT Internal Medicine; ATTEND Internal Medicine
DX: E11.10 Type 2 diabetes mellitus with ketoacidosis without coma (principal); R94.31 Abnormal electrocardiogram [ECG] [EKG]; E87.2 Acidosis; N25.9 Disorder resulting from impaired renal tubular function, unspecified; R94.6 Abnormal results of thyroid function studies; Z20.822 Contact with and (suspected) exposure to COVID-19; Z92.21 Personal history of antineoplastic chemotherapy; Z92.3 Personal history of irradiation; K76.9 Liver disease, unspecified; Z79.890 Hormone replacement therapy; Z79.899 Other long term (current) drug therapy; Z85.118 Personal history of other malignant neoplasm of bronchus and lung; Z90.49 Acquired absence of other specified parts of digestive tract; Z79.4 Long term (current) use of insulin
CPT/HCPCS: 0240U; 36415; 36600; 71045; 80048; 80053; 81001; 82009; 82803; 82947; 82962; 83605; 83615; 83690; 83735; 83880; 83930; 84100; 84439; 84443; 84550; 85025; 85610; 85652; 85730; 86140; 87040; 93005; 93010; 96374; 99222; 99238; 99285; 99285-25; A9270-GY; J1642; J1815-GY; J2765; J3475; J3480; J7030; J7042; J7120; U0002

== ENCOUNTER 2021-02-12 17:17 | Emergency (ER) | payer MEDICARE, BC ==
[2021-02-12 17:36] VITALS: BP 136/83; PULSE 91
--- NOTE | 2021-02-12 19:31 | CR ---
Abdomen: Supine view of the abdomen was obtained. Comparison: Prior abdominal x-ray of 04/08/[address] abdomen and pelvis exam of 06/03/14. Bowel gas pattern is normal. Contrast is noted within the bladder. Vascular calcification is noted. Scattered degenerative change is noted throughout the spine. Surgical clips are seen from previous cholecystectomy. Partially visualized catheter is seen within the chest. Stool within the colon appears within normal limits. Impression: 1. Findings as noted above. 2. Nothing acute is appreciated on supine abdominal x-ray. Diagnostic code #2
[2021-02-12] MEDS ORDERED: Tamsulosin 0.4 MG Cap.ER PO ONE (21:05)
--- NOTE | 2021-02-12 21:10 | EDM.PDOC ---
ED HPI GENERAL MEDICAL PROBLEM - General Chief Complaint: Genitourinary Problem Stated Complaint: CONSTIPATES SINCE TUESDAY, BLADDER DOES NOT EMPTY Time Seen by Provider: 02/12/21 20:05 Source of Information: Reports: Patient, Family () History Limitations: Reports: No Limitations - History of Present Illness INITIAL COMMENTS - FREE TEXT/NARRATIVE: Mr. Chapman is a very pleasant 70-year-old gentleman who now presents the ED stating that he has had the sensation of urinary retention on and off for the past 3 weeks, along with several weeks of constipation. He was advised to take magnesium oxide, which he started 9 days ago, on 02/03/2021. He very soon thereafter had watery diarrhea. His last dose of magnesium oxide was 1 week ago today, on , 02/05/2021. The diarrhea subsequently subsided, and the patient is now not had a bowel movement since 02/09/2021. The patient suffers from chronic pain due to metastatic lung cancer, for which he ta kes long-acting morphine. Here in the ED, the patient is found to be hemodynamically stable, afebrile, saturating 96% on room air. He appears to be relatively comfortable, saturating 96% on room air. Other than the urinary retention, constipation, and chronic pain, the patient denies having a recent fever, chills, sore throat, ear pain, nasal or sinus congestion, cough, dyspnea, chest pain, palpitations, nausea, vomiting, abdominal pain, recent weight gain or weight loss, recent bloody bowel movements or black bowel movements, recent joint aches, headaches, or rashes. The patient's PCP is Dr. Rob Webb. His Oncologist is Dr. Julio C Miles. He has received 2 COVID vaccinations. - Related Data Allergies Allergy/AdvReac Type Severity Reaction Status Date / Time No Known Allergies Allergy Verified 02/12/21 17:36 Home Meds: Home Meds atorvaSTATin [Lipitor] 80 mg PO DAILY 04/08/14 [History] Glimepiride 2 mg PO DAILY 08/02/20 [History] Insulin Detemir [Levemir] 22 unit SUBCUT DAILY 08/02/20 [History] Latanoprost 1 drop EYEBOTH DAILY 08/02/20 [History] Levothyroxine [Synthroid] 100 mcg PO ACBREAKFAST 08/02/20 [History] Losartan [Cozaar] 50 mg PO DAILY 08/02/20 [History] Sildenafil [Revatio] 20 mg PO TID PRN 08/02/20 [History] metFORMIN [Glucophage] 850 mg PO DAILY 08/02/20 [History] Tamsulosin [Flomax] 1 cap PO QPM #30 cap.er 02/12/21 [Rx] Past Medical History HEENT History: Reports: Impaired Vision (wears glasses) Cardiovascular History: Reports: High Cholesterol, Hypertension Musculoskeletal History: Reports: Fracture (right ankle) Endocrine/Metabolic History: Reports: Diabetes, Type II Oncologic (Cancer) History: Reports: Lung (right, dx'd Dec 2019, s/p CTx, RTx, ImmunoTx) - Past Surgical History GI Surgical History: Reports: Appendectomy, Cholecystectomy (2013 or 2014) Oncologic Surgical History: Reports: Other (See Below) (Right lung bx Dec 2019) Social & Family History - Tobacco Use Tobacco Use Status *Q: Former Tobacco User Years of Tobacco use: 52 Packs/Tins Daily: 1.5 Month/Year Tobacco Last Used: Quit Dec 2019 Tobacco Use Comment: Started smoking 1967 - Alcohol Use Alcohol Use History: No - Recreational Drug Use Recreational Drug Use: No - Living Situation & Occupation Living situation: Reports: , with Spouse Occupation: Retired ED ROS GENERAL - Review of Systems Review Of Systems: Comprehensive ROS is negative, except as noted in HPI. ED EXAM, GENERAL - Physical Exam Exam: See Below Exam Limited By: No Limitations General Appearance: Alert, WD/WN, No Apparent Distress Eye Exam: Bilateral Eye: EOMI, Normal Inspection Ears: Normal External Exam, Hearing Grossly Normal Nose: Normal Inspection Throat/Mouth: Normal Inspection, Normal Lips, Normal Voice, No Airway Compromise Head: Atraumatic, Normocephalic Neck: Normal Inspection, Full Range of Motion Respiratory/Chest: No Respiratory Distress, Lungs Clear, Normal Breath Sounds, No Accessory Muscle Use Cardiovascular: Normal Peripheral Pulses, Regular Rate, Rhythm, No Gallop, No JVD, No Murmur, No Rub Peripheral Pulses: 3+: Radial (L), Radial (R) GI/Abdominal: Normal Bowel Sounds, Soft, Non-Tender, No Organomegaly, No Distention, No Abnormal Bruit, No Mass Rectal (Males) Exam: Normal Rectal Tone, Fecal Impaction Back Exam: Normal Inspection, Full Range of Motion, NT Extremities: Normal Inspection, Normal Range of Motion, Normal Capillary Refill Neurological: Alert, Oriented, Normal Cognition, No Motor/Sensory Deficits Psychiatric: Normal Affect Skin Exam: Warm, Dry, Intact, Normal Color, No Rash Course - Vital Signs Last Recorded V/S: Last Vital Signs Temp 36.6 C 02/12/21 17:35 Pulse 91 02/12/21 17:35 Resp 16 02/12/21 17:35 BP 136/83 02/12/21 17:35 Pulse Ox 96 02/12/21 17:35 - Orders/Labs/Meds Orders: Active Orders 24 hr Category Date Time Status Enema [RC] ASDIRECTED Care 02/12/21 21:04 Active Insert Urinary Catheter [OM.PC] Stat Care 02/12/21 17:40 Ordered Urinary Catheter Assessment [RC] ASDIRECTED Care 02/12/21 17:54 Active Labs: Laboratory Tests 02/12/21 Range/Units 17:40 Urine Color Yellow (Yellow) Urine Appearance Clear (Clear) Urine pH 6.5 (5.0-8.0) Ur Specific [place] 1.020 (1.005-1.030) Urine Protein 1+ H (Negative) Urine Glucose (UA) Negative (Negative) Urine Ketones Negative (Negative) Urine Occult Blood 3+ H (Negative) Urine Nitrite Negative (Negative) Urine Bilirubin Negative (Negative) Urine Urobilinogen 0.2 (0.2-1.0) Ur Leukocyte Esterase Negative (Negative) Urine RBC >100 H (0-5) /hpf Urine WBC 0-5 (0-5) /hpf Ur Epithelial Cells Not seen (0-5) /hpf Urine Bacteria Few (FEW) /hpf Urine Mucus Not seen (FEW) /hpf Meds: Medications Discontinued Medications Generic Name Dose Route Start Last Admin Trade Name Freq PRN Reason Stop Dose Admin Morphine Sulfate 15 mg 02/13/21 09:00 Morphine 15 Mg Tab.Er PO Q12HR [facility] Morphine Sulfate 15 mg 02/13/21 22:27 Morphine 15 Mg Tab.Er PO 02/13/21 22:28 ONETIME ONE Morphine Sulfate 15 mg 02/12/21 22:27 02/12/21 22:33 Morphine 15 Mg Tab.Er PO 02/12/21 22:28 15 mg ONETIME ONE Administration Tamsulosin HCl 0.4 mg 02/12/21 21:05 02/12/21 21:12 Tamsulosin 0.4 Mg Cap.Er PO 02/12/21 21:06 0.4 mg ONETIME ONE Administration - Re-Assessments/Exams Free Text/Narrative Re-Assessment/Exam: 02/12/21 21:05 As above, the patient has had both symptoms of urinary retention and constipation for the past several weeks. He started taking magnesium oxide 9 days ago, which produced diarrhea. His last dose of magnesium oxide was on , and his last bowel movement was this past Tuesday. A bladder scan at triage demonstrated 1600 mL, but a urinary catheter drained 2700 mL of urine. Unfortunately, a Vee catheter was not placed. A urinalysis, ordered at triage, demonstrated 3+ occult blood with >100 RBCs, leukocyte esterase negative with 0-5 WBCs, and nitrate negative with few bacteria. A KUB, ordered at triage, appears to demonstrate stool in the cecum, and several stools in the descending colon, but no significant stool in the rectum. On rectal examination, however, hard stool was palpable in the rectum. I performed a manual disimpaction. Going forward, I have ordered 1 or 2 soapsuds enemas to see if we can clear the patient out, along with placement of a Vee catheter. The patient will be started on tamsulosin. 02/12/21 21:47 Notified by Ashwini MOSS that she gave two soapsuds enemas, with mostly liquid and very little solid output. She will now place a Vee catheter. 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 I will refer him to Dr. Yee for Urology. With respect to his constipation, since he takes morphine on a regular basis, his constipation will return unless he takes preventative action. I recommended that he start taking MiraLAX, mixed in a large quantity of water, on a regular basis. Departure - Departure Time of Disposition: 22:26 Disposition: Home, Self-Care 01 Condition: Good Clinical Impression: Urinary retention, Fecal impaction in rectum, Constipation - Discharge Information *PRESCRIPTION DRUG MONITORING PROGRAM REVIEWED*: Not Applicable *COPY OF PRESCRIPTION DRUG MONITORING REPORT IN PATIENT CANDY: Not Applicable Prescriptions: Tamsulosin [Flomax] 1 cap PO QPM #30 cap.er Instructions: Constipation, Adult, Fecal Impaction, Acute Urinary Retention, Male Referrals: Rob Webb MD [Primary Care Provider] - Zohaib Yee MD [Ordering Only Provider] - Julio C Miles MD [Ordering Only Provider] - Forms: ED Department Discharge Additional Instructions: You were seen in the emergency room for 3 weeks of the intermittent sensation of urinary retention, and several weeks of constipation, with no bowel movement since Tuesday. Work-up in the ER included a bladder scan, a urinalysis and an x-ray of your abdomen. The urinalysis showed no sign of a urinary tract infection. The bladder scan found 1600 mL of urine in your bladder, and once a catheter was placed, over 2700 mL of urine was drained. A Vee catheter has been placed. Maintain the Vee catheter as explained to you by your nurse. Make sure that the catheter bag is below your body height when you sleep, so that urine does not backflow into your bladder. You have been started on the prostate medicine tamsulosin (Flomax), and a prescription for tamsulosin has been sent to [facility] in the [facility] across the street from the hospital. Take 1 tablet of tamsulosin every evening, starting tomorrow evening, 02/13/2021, as prescribed. Please follow-up with the Urologist Dr. Zohaib Yee, in [place], at the next available appointment. Make sure that the alemite operator understands that you are following up from the ER, and don't forget that [place] is 1 hour ahead of us. The x-ray of your abdomen did not show significant constipation, however, fecal impaction was found on rectal examination. You were disimpacted in the ER, then given two soapsuds enemas. In order to avoid constipation in the future, we recommend that you begin taking [id number] MiraLAX and a large glass of water, daily. If any other problems, please do not hesitate to return to the ER. Sepsis Event Note (ED) - Evaluation Sepsis Screening Result: No Definite Risk - Focused Exam Vital Signs: Vital Signs Temp Pulse Resp BP Pulse Ox 02/12/21 17:35 36.6 C 91 16 136/83 96 - My Orders Last 24 Hours: My Active Orders 02/12/21 17:40 Insert Urinary Catheter [OM.PC] Stat 02/12/21 17:54 Urinary Catheter Assessment [RC] ASDIRECTED 02/12/21 21:04 Enema [RC] ASDIRECTED - Assessment/Plan Last 24 Hours: My Active Orders 02/12/21 17:40 Insert Urinary Catheter [OM.PC] Stat 02/12/21 17:54 Urinary Catheter Assessment [RC] ASDIRECTED 02/12/21 21:04 Enema [RC] ASDIRECTED
[2021-02-12] MEDS ORDERED: Morphine 15 MG Tab.ER PO ONE (22:27)
[2021-02-13] MEDS ORDERED: Morphine 15 MG Tab.ER PO SCH (09:00)
[2021-02-13] MEDS ORDERED: Morphine 15 MG Tab.ER PO ONE (22:27)
== END 2021-02-12 22:44 | disposition home or self-care (01) ==
LOC: JD.ED 17:17
DX: K56.41 Fecal impaction (principal); E78.00 Pure hypercholesterolemia, unspecified; R33.9 Retention of urine, unspecified; I10 Essential (primary) hypertension; E11.9 Type 2 diabetes mellitus without complications; Z87.891 Personal history of nicotine dependence; Z79.899 Other long term (current) drug therapy
CPT/HCPCS: 51702; 74018; 81001; 99283; A9270; 99284

== ENCOUNTER 2021-02-16 14:28 | Emergency (ER) | payer MEDICARE, BC ==
[2021-02-16 14:38] VITALS: BP 125/99; PULSE 109
--- NOTE | 2021-02-16 15:50 | EDM.PDOC ---
ED HPI GENERAL MEDICAL PROBLEM - General Chief Complaint: General Stated Complaint: YAHAIRA AMB Time Seen by Provider: 02/16/21 15:50 Source of Information: Reports: Patient History Limitations: Reports: No Limitations - History of Present Illness INITIAL COMMENTS - FREE TEXT/NARRATIVE: 70-year-old male presents to the ED just generally not feeling well. He knows that he is confused at times and disoriented. The other day he cut his Vee catheter with a scissors only a day after it had been inserted and we had to reinsert a new Vee. He has a neurogenic bladder. 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 It is unclear whether the metastatic disease to his brain has occurred. Patient speaks tangentially and in a circular fashion. He has got near complete loss of appetite. He states everything tastes metallic he. He is missed his last several appointments in [place]. States he did well with the first 2 treatments of chemotherapy for lung cancer but the third 1 seemed to really cause a lot of problems in terms of confusion loss of appetite weight loss and weakness. He has not had a bowel movement he believes for at least 4 to 5 days. Note he was recently started on Lasix 20 mg once daily for 7 days with potassium 8 mEq twice daily for 7 days which are both done. Patient does not have any plans to continue further aggressive treatment or chemotherapy. They are to see their primary care provider tomorrow and they will broach decisions about hospice care and better pain management with like fentanyl patches. 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 Breakthrough pain is quite prominent.) Quality: Reports: Other (Intermittent nausea which she blames on morphine tablets. It appears that these are 30 mg slow release twice daily) Severity: Moderate - Related Data Allergies Allergy/AdvReac Type Severity Reaction Status Date / Time No Known Allergies Allergy Verified 02/12/21 17:36 Home Meds: Home Meds atorvaSTATin [Lipitor] 80 mg PO DAILY 04/08/14 [History] Glimepiride 2 mg PO DAILY 08/02/20 [History] Insulin Detemir [Levemir] 22 unit SUBCUT DAILY 08/02/20 [History] Latanoprost 1 drop EYEBOTH DAILY 08/02/20 [History] Levothyroxine [Synthroid] 100 mcg PO ACBREAKFAST 08/02/20 [History] Losartan [Cozaar] 50 mg PO DAILY 08/02/20 [History] Sildenafil [Revatio] 20 mg PO TID PRN 08/02/20 [History] metFORMIN [Glucophage] 850 mg PO DAILY 08/02/20 [History] Tamsulosin [Flomax] 1 cap PO QPM #30 cap.er 02/12/21 [Rx] Cefdinir [Omnicef] 300 mg PO BID #14 cap 02/16/21 [Rx] Furosemide [Lasix] 40 mg PO DAILY #30 tablet 02/16/21 [Rx] Magnesium Oxide 400 mg PO DAILY #30 tab 02/16/21 [Rx] Spironolactone [Aldactone] 25 mg PO ONETIME #30 tab 02/16/21 [Rx] Past Medical History HEENT History: Reports: Impaired Vision Other HEENT History: wears glasses Cardiovascular History: Reports: High Cholesterol, Hypertension Respiratory History: Reports: Other (See Below) Other Respiratory History: lung ca in the right lung. He cannot member of his upper or lower. He was treated with radiation and chemotherapy. He had multiple lymphadenopathy in the right perihilar area as well which apparently has resolved on most recent PET scan. Unfortunately a new lesion was discovered in his liver within the last 4 months and it is being kept an eye on. He is still on immunotherapy. PET scan was done within the last 10 days. Musculoskeletal History: Reports: Fracture Endocrine/Metabolic History: Reports: Diabetes, Type II Oncologic (Cancer) History: Reports: Lung - Past Surgical History Respiratory Surgical History: Reports: Lung Biopsies, Other (See Below) GI Surgical History: Reports: Appendectomy, Cholecystectomy Oncologic Surgical History: Reports: Other (See Below) Social & Family History - Tobacco Use Tobacco Use Status *Q: Former Tobacco User Used Tobacco, but Quit: Yes Month/Year Tobacco Last Used: 2009 - Caffeine Use Caffeine Use: Reports: None - Recreational Drug Use Recreational Drug Use: No - Living Situation & Occupation Living situation: Reports: , with Spouse Occupation: Retired ED ROS GENERAL - Review of Systems Review Of Systems: See Below Constitutional: Reports: Malaise, Weakness, Fatigue, Decreased Appetite, Weight Loss. Denies: Fever, Chills HEENT: Reports: Glasses Respiratory: Reports: Shortness of Breath, Cough. Denies: Wheezing, Pleuritic Chest Pain Cardiovascular: Reports: Blood Pressure Problem (Nonproductive), Dyspnea on Exertion, Edema, Lightheadedness (At times times), Orthopnea. Denies: Chest Pain, Claudication, Palpitations Endocrine: Reports: Fatigue GI/Abdominal: Reports: Constipation, Decreased Appetite : Reports: Frequency, Other (Urine is dark in color.) Musculoskeletal: Reports: Back Pain (Lumbar spine pain), Other (Pain throughout the pelvis and sacrum.) Skin: Reports: No Symptoms Neurological: Reports: No Symptoms Psychiatric: Reports: No Symptoms Hematologic/Lymphatic: Reports: Anemia Immunologic: Reports: No Symptoms ED EXAM, GENERAL - Physical Exam Exam: See Below Exam Limited By: No Limitations General Appearance: Alert, WD/WN, Mild Distress, Other (Certainly appears unwell. He has pallid in appearance. Temperature is 36.2 degrees heart rate 110 and sinus respiratory of 20 with O2 sats of 99% room air BP 125/99) Eye Exam: Bilateral Eye: Normal Inspection (Mild blepharal pallor without scleral icterus.), PERRL Ears: Normal TMs Throat/Mouth: Other (Is dry and coated.) Head: Atraumatic, Normocephalic Neck: Normal Inspection, Supple, Non-Tender, Full Range of Motion. No: Carotid Bruit, Lymphadenopathy (L), Lymphadenopathy (R) Respiratory/Chest: Respiratory Distress (Tachypnea at rest.), Decreased Breath Sounds (Recent breath sounds to the right lung base with scattered rales right lung base.), Rhonchi (Scattered rhonchi anterior right lung field). No: Lungs Clear, Normal Breath Sounds Cardiovascular: Regular Rate, Rhythm, No Gallop, No Murmur, No Rub Peripheral Pulses: 1+: Posterior Tibial (L), Posterior Tibial (R), Dorsalis P kimmie (L), Dorsalis Pedis (R), 2+: Carotid (L), Carotid (R) GI/Abdominal: Normal Bowel Sounds, Soft, Non-Tender, No Organomegaly, No Mass, Pelvis Stable Back Exam: Normal Inspection, Full Range of Motion. No: CVA Tenderness (L), CVA Tenderness (R) Extremities: Normal Inspection, Pedal Edema (Slightly worse on the left as co mpared to the right.) Neurological: Alert, Oriented, CN II-XII Intact, Normal Cognition. No: Normal Gait Psychiatric: Flat Affect Skin Exam: Warm, Dry, Intact, No Rash, Pallor #1 Interpretation EKG Date: 02/16/21 Time: 15:56 Rhythm: Other Rate (Beats/Min): 110 [place]: Normal P-Wave: Present QRS: Other (Q waves V1 and V2 compared with old anteroseptal myocardial infarction decreased voltage limb and precordial leads.) ST-T: Other (Nonspecific T wave flattening in leads I and aVL) QT: Prolonged (Moderately prolonged) EKG Interpretation Comments: ECG Course - Vital Signs Last Recorded V/S: Last Vital Signs Temp 36.2 C 02/16/21 14:35 Pulse 109 H 02/16/21 14:35 Resp 20 02/16/21 14:35 BP 125/99 H 02/16/21 14:35 Pulse Ox 99 02/16/21 14:35 - Orders/Labs/Meds Orders: Active Orders 24 hr Category Date Time Status BLOOD CULTURE [MREF] Stat Lab 02/16/21 16:08 Received BLOOD CULTURE [MREF] Stat Lab 02/16/21 16:16 Received CULTURE URINE [MREF] Stat Lab 02/16/21 17:58 Received Blood Culture x2 Reflex Set [OM.PC] Stat Oth 02/16/21 15:48 Ordered Labs: Laboratory Tests 02/16/21 02/16/21 02/16/21 Range/Units 16:08 16:08 16:08 WBC 7.61 (4.23-9.07) K/mm3 RBC 3.61 L (4.63-6.08) M/mm3 Hgb 10.2 L D (13.7-17.5) gm/dl Hct 31.7 L (40.1-51.0) % MCV 87.8 (79.0-92.2) fl MCH 28.3 (25.7-32.2) pg MCHC 32.2 (32.2-35.5) g/dl RDW Std Deviation 53.7 H (35.1-43.9) fL Plt Count 365 H D (163-337) K/mm3 MPV 8.1 L (9.4-12.3) fl Neut % (Auto) 77.8 H (34.0-67.9) % Lymph % (Auto) 10.5 L (21.8-53.1) % Lamar % (Auto) 7.9 (5.3-12.2) % Eos % (Auto) 3.2 (0.8-7.0) Baso % (Auto) 0.5 (0.1-1.2) % Neut # (Auto) 5.92 H (1.78-5.38) K/mm3 Lymph # (Auto) 0.80 L (1.32-3.57) K/mm3 Lamar # (Auto) 0.60 (0.30-0.82) K/mm3 Eos # (Auto) 0.24 (0.04-0.54) K/mm3 Baso # (Auto) 0.04 (0.01-0.08) K/mm3 PT 11.4 (9.7-12.0) SECONDS INR 1.07 APTT 29.7 (21.7-31.4) SECONDS Sodium 138 (136-145) mEq/L Potassium 3.5 (3.5-5.1) mEq/L Chloride 100 (98-107) mEq/L Carbon Dioxide 31 (21-32) mEq/L Anion Gap 10.5 (5-15) BUN 17 (7-18) mg/dL Creatinine 1.1 (0.7-1.3) mg/dL Est Cr Clr Drug Dosing 68.15 mL/min Estimated GFR (MDRD) > 60 (>60) mL/min BUN/Creatinine Ratio 15.5 (14-18) Glucose 197 H (70-99) mg/dL Calcium 8.2 L (8.5-10.1) mg/dL Magnesium 1.5 L (1.8-2.4) mg/dL Total Bilirubin 0.3 (0.2-1.0) mg/dL AST 27 (15-37) U/L ALT 16 (16-63) U/L Alkaline Phosphatase 81 (46-116) U/L CK-MB (CK-2) 0.7 (0-3.6) ng/ml Troponin I 0.025 (0.00-0.056) ng/mL C-Reactive Protein 5.1 H* (<1.0) mg/dL NT-Pro-B Natriuret Pep (0-125) pg/mL Total Protein 5.9 L (6.4-8.2) g/dl Albumin 1.9 L (3.4-5.0) g/dl Globulin 4.0 gm/dL Albumin/Globulin Ratio 0.5 L (1-2) Urine Color (Yellow) Urine Appearance (Clear) Urine pH (5.0-8.0) Ur Specific [place] (1.005-1.030) Urine Protein (Negative) Urine Glucose (UA) (Negative) Urine Ketones (Negative) Urine Occult Blood (Negative) Urine Nitrite (Negative) Urine Bilirubin (Negative) Urine Urobilinogen (0.2-1.0) Ur Leukocyte Esterase (Negative) Urine RBC (0-5) /hpf Urine WBC (0-5) /hpf Ur Epithelial Cells (0-5) /hpf Urine Bacteria (FEW) /hpf Urine Mucus (FEW) /hpf 02/16/21 02/16/21 Range/Units 16:08 16:50 WBC (4.23-9.07) K/mm3 RBC (4.63-6.08) M/mm3 Hgb (13.7-17.5) gm/dl Hct (40.1-51.0) % MCV (79.0-92.2) fl MCH (25.7-32.2) pg MCHC (32.2-35.5) g/dl RDW Std Deviation (35.1-43.9) fL Plt Count (163-337) K/mm3 MPV (9.4-12.3) fl Neut % (Auto) (34.0-67.9) % Lymph % (Auto) (21.8-53.1) % Lamar % (Auto) (5.3-12.2) % Eos % (Auto) (0.8-7.0) Baso % (Auto) (0.1-1.2) % Neut # (Auto) (1.78-5.38) K/mm3 Lymph # (Auto) (1.32-3.57) K/mm3 Lamar # (Auto) (0.30-0.82) K/mm3 Eos # (Auto) (0.04-0.54) K/mm3 Baso # (Auto) (0.01-0.08) K/mm3 PT (9.7-12.0) SECONDS INR APTT (21.7-31.4) SECONDS Sodium (136-145) mEq/L Potassium (3.5-5.1) mEq/L Chloride (98-107) mEq/L Carbon Dioxide (21-32) mEq/L Anion Gap (5-15) BUN (7-18) mg/dL Creatinine (0.7-1.3) mg/dL Est Cr Clr Drug Dosing mL/min Estimated GFR (MDRD) (>60) mL/min BUN/Creatinine Ratio (14-18) Glucose (70-99) mg/dL Calcium (8.5-10.1) mg/dL Magnesium (1.8-2.4) mg/dL Total Bilirubin (0.2-1.0) mg/dL AST (15-37) U/L ALT (16-63) U/L Alkaline Phosphatase (46-116) U/L CK-MB (CK-2) (0-3.6) ng/ml Troponin I (0.00-0.056) ng/mL C-Reactive Protein (<1.0) mg/dL NT-Pro-B Natriuret Pep 2775 H (0-125) pg/mL Total Protein (6.4-8.2) g/dl Albumin (3.4-5.0) g/dl Globulin gm/dL Albumin/Globulin Ratio (1-2) Urine Color Yellow (Yellow) Urine Appearance Clear (Clear) Urine pH 6.5 (5.0-8.0) Ur Specific [place] 1.020 (1.005-1.030) Urine Protein 1+ H (Negative) Urine Glucose (UA) Negative (Negative) Urine Ketones Negative (Negative) Urine Occult Blood 3+ H (Negative) Urine Nitrite Positive H (Negative) Urine Bilirubin Negative (Negative) Urine Urobilinogen 0.2 (0.2-1.0) Ur Leukocyte Esterase 1+ H (Negative) Urine RBC 20-30 H (0-5) /hpf Urine WBC 5-10 H (0-5) /hpf Ur Epithelial Cells 0-5 (0-5) /hpf Urine Bacteria Many H (FEW) /hpf Urine Mucus Not seen (FEW) /hpf Meds: Medications Discontinued Medications Generic Name Dose Route Start Last Admin Trade Name Ozzy PRN Reason Stop Dose Admin Furosemide 40 mg 02/16/21 17:56 02/16/21 18:13 Furosemide 40 Mg/4 Ml Vial IVPUSH 02/16/21 17:57 40 mg NOW ONE Administration Sodium Chloride 1,000 mls @ 125 mls/hr 02/16/21 16:00 02/16/21 16:36 Normal Saline IV 125 mls/hr ASDIRECTED REGINALD Administration Magnesium Sulfate 2 gm/ Premix 50 mls @ 25 mls/hr 02/16/21 18:00 02/16/21 18:15 IV 25 mls/hr Q1H REGINALD Administration Ceftriaxone Sodium 1 gm/ 100 mls @ 200 mls/hr 02/16/21 17:59 02/16/21 18:15 Sodium Chloride IV 02/16/21 18:28 200 mls/hr ONETIME ONE Administration Magnesium Citrate 296 ml 02/16/21 19:41 02/16/21 20:05 Magnesium Citrate Solution 296 Ml Bottle PO 02/16/21 19:42 296 ml ONETIME ONE Administration - Radiology Interpretation Free Text/Narrative:: 70-year-old male attends the ED with chief complaint of generally not feeling well. Patient has primary right-sided lung cancer diagnosed in November 2019. He has received radiation to this area and did start a course of chemotherapy this year. He did fine with the first 2 treatments but he states the third treatment really knocked him down badly. At this point time he is considering no further treatments. Patient has been diagnosed with metastatic disease to bones primarily involving his pelvis and sacrum and lumbar spine. He states nothing tastes good. His pain is poorly controlled with MS Contin 30 mg twice daily. He has breakthrough pain and nothing really to take for it. He has plans to follow-up with primary care provider tomorrow to address these concerns. He states he is not had a bowel movement for 4 to 5 days. Last week we had to see him twice for Vee catheter placement due to neurogenic bladder likely precipitated by narcotic use. He had a confusional episode where he actually cut his catheter with a scissors day after he was placed and had to have a second catheter placed. He does not think he has been running a fever or having any chills. He has absolutely no appetite. He states all food tastes metallic he suggesting possibility of metastatic disease to the liver. Patient is an insulin-dependent diabetic for many years. He is usually well controlled on Lantus twice daily but his Lantus in the evening dose has been decreased recently due to low blood sugars. He is currently receiving 2 to 4 units in the evening and 10 units in the morning. He has NovoLog which is rarely utilized. My concern is whether or not he has developed urinary tract infection since Vee catheter was inserted and removed and inserted twice within a period of 3 days. He denies cough or sputum production. He did receive his vaccine for COVID-19 illness. Plan he will have chest x-ray and routine labs and urinalysis done. - Re-Assessments/Exams Free Text/Narrative Re-Assessment/Exam: 02/16/21 17:53 chest x-ray reveals an infiltrate in the right upper lobe and right middle lobe of the lung off the perihilar area with evidence of previous irradiation to this area. It appears the area has an increasing density as compared to the last CT chest x-ray. There is also very slight perihilar interstitial changes seen on the left side which I believe is fluid. CT head reveals the ventricles along with the basal cisterns and sulci over the convexities to be mildly prominent for the patient's age. Diminished density is noted within the periventricular white matter compatible with small vessel ischemic demyelination change. No other abnormal parenchymal densities are seen. No evidence of intracranial hemorrhage is seen. No midline shift or mass-effect is seen. Bone window settings were reviewed. Visualized mastoid sinuses are clear. Soft tissue densities are seen within both maxillary sinuses combined with retention cysts and mucosal thickening. Mucosal thickening is also noted within the ethmoid sinuses. No air-fluid levels are seen. No acute calvarial abnormalities appreciated. 02/16/21 17:55 White count is normal at 7.61. Differential shows 77.8% neutrophils. Hemoglobin is slightly low at 10.2 with hematocrit of 31.7. Plate let count is 365,000. PT is 11.4 with an INR of 1.07. PTT is 29.7. Sodium is 138 with a potassium of 3.5. Chloride 100 with a bicarb of 31. Anion gap is 10.5. BUN is 17 with a creatinine of 1.1 and a GFR greater than 60. Glucose is 197 patient is a diabetic. Calcium is 8.2 with a magnesium low at 1.5. Liver function is normal. CK-MB is 0.7 troponin I is 0.025. C-reactive protein is slightly elevated at 5.1. BNP is 2775. Total protein is 5.9 with an albumin fraction of 1.9. Urinalysis showed 3+ occult blood and positive nitrates. Leukocyte esterase 1+ with 20-30 red blood cells per high-power field and 5-10 white blood cells per high-power field. Many bacteria are appreciated. A urine culture will be obtained. 02/16/21 17:57 KUB reveals increased stool throughout the rectal vault and other portions of the colon compatible with constipation. Several mildly dilated loops of small bowel are evident without air-fluid levels. No signs of bowel obstruction exist. 02/16/21 18:15::05 He will be given magnesium citrate or Citroma 10 ounces to drink tomorrow after his primary care appointment so that he is close to home. I am going to place him on magnesium oxide 400 mg tablets daily which will promote better bowel function and also improve his magnesium levels which are low. He will receive 2 gm of magnesium fusion in the ED tonight. He will be given a dose of Rocephin 1 g IV for low-grade urinary tract infection due to recent catheter manipulation in the note x2 in the last 5 days. He will be discharged on Omnicef 300 mg twice daily for another 7 days to clear up urinary tract infection. The plan will be to leave him on MiraLAX powder 17 g once daily. He will be started on magnesium oxide 400 mg daily which which should promote regular bowel function and improve his serum magnesium levels. His pain medication needs to be addressed as it is poorly controlled on MS Contin 30 mg every 12 hours. He has nothing for breakthrough pain which occurs quite frequently. If he has decided not to take any further chemotherapy then he is a candidate for hospice care which would then in turn pay for his medications. He could then be trialed on a course of fentanyl patches starting with 12.5 mg every 72 hours. In regards to increasing fluid retention with BNP of 2775 today I am going to place him on Lasix 40 mg once daily every morning with Aldactone 25 mg once daily in the morning so as not to precipitate potassium wasting. He will need renal function and potassium check in 7 to 10 days time. Departure - Departure Time of Disposition: 19:47 Disposition: Home, Self-Care 01 Condition: Fair Clinical Impression: Lung cancer metastatic to bone, Pain management, Hypomagnesemia Congestive heart failure Qualifiers: Heart failure type: diastolic Heart failure chronicity: acute on chronic Qualified Code(s): I50.33 - Acute on chronic diastolic (congestive) heart failure Type 2 diabetes mellitus Qualifiers: Diabetes mellitus detention insulin use: with intermediate card tender use Diabetes mellitus complication status: with circulatory complication Urinary tract infection associated with catheterization of urinary tract Qualifiers: Indwelling urinary catheter type: indwelling urethral catheter Encounter type: initial encounter Qualified Code(s): T83.511A - Infection and inflammatory reaction due to indwelling urethral catheter, initial encounter - Discharge Information *PRESCRIPTION DRUG MONITORING PROGRAM REVIEWED*: Not Applicable *COPY OF PRESCRIPTION DRUG MONITORING REPORT IN PATIENT CANDY: Not Applicable Prescriptions: Spironolactone [Aldactone] 25 mg PO ONETIME #30 tab Furosemide [Lasix] 40 mg PO DAILY #30 tablet Magnesium Oxide 400 mg PO DAILY #30 tab Cefdinir [Omnicef] 300 mg PO BID #14 cap Instructions: Hypomagnesemia, Urinary Tract Infection, Adult, [id number], Heart Failure, Diagnosis, [id number], Lung Cancer, Metastatic Cancer, Type 2 Diabetes Mellitus, Diagnosis, Adult, [id number] Referrals: Rob Webb MD [Primary Care Provider] - Julio C Miles MD [Ordering Only Provider] - Forms: ED Department Discharge Additional Instructions: Evaluation in the emergency room today in regards to just generally not feeling well. Known primary right-sided lung cancer with metastatic disease to bone causing chronic pain syndrome. Pain is not well controlled. Suggest addressing this with primary care provider tomorrow. I would suggest getting on hospice care which would then pay for medications. Patient may well be served by being placed on fentanyl patches every 72 hours as needed for pain relief. CT of the brain done in the emergency room today does not reveal any signs of metastatic disease to the brain. As we discussed blood sugars have been much lower in the evenings with decreasing dosages of Lantus being used in the evenings. It is my suggestion to give him a 6 single dose of Lantus 12 to 14 units once daily in the morning and then Humalog in the evenings if needed. Identified to have low magnesium levels in the emergency room today and this was corrected with magnesium infusion. This occurs from not being able to eat and also use of Lasix which causes the kidneys to waste magnesium. Suggest using magnesium supplement magnesium oxide 400 mg once daily which will improve constipation issues. Lab tests also revealed increasing evidence of fluid retention and is going to need to take Lasix or diuretic tablet once daily every morning i.e. 40 mg once daily with Aldactone 25 mg once daily in the morning to prevent potassium loss caused by the Lasix. Due to recent catheterization twice within a short period of time I believe it may have caused a low-grade urinary tract infection and some degree of bacteremia and therefore first dose of antibiotic was Rocephin 1 g given in the emergency department. Suggest continuing Omnicef 300 mg tablet twice daily for 7 more days to clear up urinary tract infection. Vee catheter placed because of neurogenic bladder likely caused by morphine pain medication. Follow-up with personal care provider tomorrow to discuss issues such as chronic pain control and possible use of fentanyl patches if hospice care can be arranged. In regards to constipation issues I would suggest starting magnesium oxide 400 mg once daily which should help improve magnesium levels in the bloodstream but also promote better emptying of the colon. Continue MiraLAX powder 17 g once daily to ensure regular bowel movement function and it can always be stopped if bowel movement function resumes normally with magnesium oxide tablets only. Sepsis Event Note (ED) - Evaluation Sepsis Screening Result: No Definite Risk - Focused Exam Vital Signs: Vital Signs Temp Pulse Resp BP Pulse Ox 02/16/21 14:35 36.2 C 109 H 20 125/99 H 99 - My Orders Last 24 Hours: My Active Orders 02/16/21 15:48 Blood Culture x2 Reflex Set [OM.PC] Stat 02/16/21 16:08 BLOOD CULTURE [MREF] Stat 02/16/21 16:16 BLOOD CULTURE [MREF] Stat 02/16/21 17:58 CULTURE URINE [MREF] Stat - Assessment/Plan Last 24 Hours: My Active Orders 02/16/21 15:48 Blood Culture x2 Reflex Set [OM.PC] Stat 02/16/21 16:08 BLOOD CULTURE [MREF] Stat 02/16/21 16:16 BLOOD CULTURE [MREF] Stat 02/16/21 17:58 CULTURE URINE [MREF] Stat
[2021-02-16] MEDS ORDERED: Sodium Chloride 0.9% 1,000 ML IV SCH (16:00)
--- NOTE | 2021-02-16 17:42 | CT ---
Head CT Technique: Multiple axial sections through the brain were obtained. Intravenous contrast was not utilized. Reconstructed coronal and sagittal images were obtained. Comparison: No prior intracranial imaging is available. Findings: Ventricles along with basal cisterns and sulci over the convexities are mildly prominent. Diminished density is noted within the periventricular white matter compatible with small vessel ischemic demyelination change. No other abnormal parenchymal densities are seen. No evidence of intracranial hemorrhage is seen. No midline shift or mass-effect is seen. Bone window settings were reviewed. Visualized mastoid sinuses are clear. Soft tissue densities are seen within both maxillary sinuses compatible with retention cysts and mucosal thickening. Mucosal thickening is also noted within the ethmoid sinuses. No air-fluid levels are seen. No acute calvarial abnormality is appreciated. Impression: 1. Sinus findings which are most likely chronic. 2. Senescent change as noted above. 3. No acute intracranial abnormality is appreciated. Diagnostic code #2
--- NOTE | 2021-02-16 17:50 | CR ---
Abdomen: Supine view of the abdomen was obtained. Comparison: Prior abdominal x-ray of 02/12/21. Vascular calcification is seen. Scattered degenerative change is noted within the spine. Mild increased stool is noted within the rectosigmoid regions as well as other portions of the colon. Catheter is partially seen within the vascular system within the chest. Surgical clips are seen from prior cholecystectomy. Impression: 1. Mild increased stool within the colon. 2. Other findings as noted above which appear chronic. Diagnostic code #2
[2021-02-16] MEDS ORDERED: Furosemide 40 MG/4 ML VIAL IVPUSH ONE (17:56)
[2021-02-16] MEDS ORDERED: cefTRIAXone 1 GM in Sodium Chloride 0.9% 100 ML IV ONE (17:59)
[2021-02-16] MEDS ORDERED: Magnesium Sulfate/Water 2 GM in Premix Bag 1 BAG IV SCH (18:00)
--- NOTE | 2021-02-16 18:18 | CR ---
Chest: PA view of the chest was obtained. Comparison: Prior chest x-ray of 08/02/20. Increasing density within the right perihilar region is seen. Slight perihilar interstitial change is seen on the left side. Heart size and mediastinum are otherwise within normal limits. Bony structures show nothing acute. Impression: 1. Increasing density within the right perihilar region either due to pneumonia, change from treatment of lung cancer or worsening of lung cancer. 2. Slight perihilar interstitial change on the left side raising the possibility of bronchitis. 3. Left-sided infusion catheter. Heart is normal in size. Diagnostic code #3
[2021-02-16] MEDS ORDERED: Magnesium Citrate Solution 296 ML Bottle PO ONE (19:41)
== END 2021-02-16 20:21 | disposition home or self-care (01) ==
LOC: JD.ED 14:28
DX: T83.511A Infection and inflammatory reaction due to indwelling urethral catheter, initial encounter (principal); N39.0 Urinary tract infection, site not specified; E11.9 Type 2 diabetes mellitus without complications; E83.42 Hypomagnesemia; C34.90 Malignant neoplasm of unspecified part of unspecified bronchus or lung; C79.51 Secondary malignant neoplasm of bone; I11.0 Hypertensive heart disease with heart failure; I50.33 Acute on chronic diastolic (congestive) heart failure; E78.00 Pure hypercholesterolemia, unspecified; Z87.891 Personal history of nicotine dependence; Z79.4 Long term (current) use of insulin; Z79.899 Other long term (current) drug therapy
CPT/HCPCS: 36415; 51702; 70450; 71045; 74018; 80053; 81001; 82553; 83735; 83880; 84484; 85025; 85610; 85730; 86140; 87040; 87086; 87088; 87186; 93005; 96365; 96367; 96375; 99285; A9270; J0696; J1940; J3475; J7030; 93010; 99284